=== PATIENT | female | born 1985 ===

== ENCOUNTER → 2020-04-16 07:36 | Outpatient (BNVA) | payer OTHER, SELFPAY | PROVIDERS: PCP Internal Medicine; Visit Provider Internal Medicine Endocrinology, Diabetes & Metabolism | DX: Z13.89 Encounter for screening for other disorder (principal) | CPT/HCPCS: 99214 ==

== ENCOUNTER 2020-07-07 11:24 | Emergency (ER) | payer OTHER, SELFPAY ==
[2020-07-07 11:39] VITALS: BP 128/88; PULSE 88; RESP 16; TEMP 36.7; O2SAT 99; BMI 33.3
--- NOTE | 2020-07-07 12:15 | ED.SOB ---
HPI - SOB/Dyspnea General Chief Complaint: Dyspnea Stated Complaint: shortness of breath Time Seen by Provider: 07/07/20 12:07 Source: patient Mode of arrival: ambulatory Limitations: no limitations History of Present Illness HPI Narrative: Patient complaining of subjective shortness of breath dry mouth for 1 day saturating 99% at room air her brother was positive for COVID yesterday and he visited her house 3 days ago no fever no cough no chest pain no abdominal pain patient requesting COVID-19 test Related Data Previous Rx's Medication Instructions Recorded cholecalciferol (vitamin D3) 25 25 mcg PO DAILY 90 Days #90 cap 04/16/20 mcg (1,000 unit) capsule levothyroxine 75 mcg tablet 75 mcg PO DAILY 90 Days #90 tab 04/16/20 Allergies Allergy/AdvReac Type Severity Reaction Status Date / Time No Known Allergies Allergy Verified 07/07/20 11:41 Review of Systems Review of Systems: Yes all other systems are reviewed and are negative PMFSH Past Medical History Medical History Goiter Terence's disease Hypothyroidism Obesity (BMI 30-39.9) Vitamin D deficiency Family History Family History Father Diabetes Paternal Grandmother Diabetes Social History Social History Smoking Status: Never smoker Advance Directives: No Advance Directives Information Provided: No Physical Exam Vital Signs: Vital Signs: Last Vital Signs Temp 98.1 F 07/07/20 11:39 Pulse 88 07/07/20 11:39 Resp 16 07/07/20 11:39 BP 128/88 07/07/20 11:39 Pulse Ox 99 07/07/20 11:39 Body Mass Index 33.3 Appearance: Alert. Oriented X3. No acute distress. Eyes: Pupils equal, round and reactive to light. ENT: Pharynx normal. Neck: Normal inspection. Neck supple. CVS: Normal heart rate and rhythm. Pulses normal. Respiratory: No respiratory distress. Breath sounds normal. Abdomen: Soft and nontender. Bowel sounds are present, no mass palpable, no CVA tenderness Skin: Skin warm and dry. Normal skin color. Normal skin turgor. Extremities: No lower extremity edema. Neuro: Oriented X 3. No motor deficit. No sensory deficit. MDM - SOB/Dyspnea Lab Data Attestation: I reviewed the patient's lab results. Labs: Lab Results 07/07/20 Range/Units 12:27 COVID-19 ([facility]) Negative (Negative) COVID-19 Clin Com See Note Discharge Plan Discharge Clinical Impression: COVID-19 ruled out Patient Disposition: Home, Self-Care Instructions: COVID-19 (Coronavirus Disease 2019) (ED) Additional Instructions: Your rapid test for COVID is negative although still possible that he may have COVID infection. Keep social distancing. Report to the ER/PCP if cough/shortness of breath continues for recheck of COVID Prescriptions: No Action levothyroxine 75 mcg tablet 75 mcg PO DAILY 90 Days Qty: 90 RF: 1 cholecalciferol (vitamin D3) 25 mcg (1,000 unit) capsule 25 mcg PO DAILY 90 Days Qty: 90 RF: 1
[2020-07-07 13:13] LABS: COVID-19 Test Negative (Negative); IDNOW Serial# 9DD0AD1C
== END 2020-07-07 14:34 | disposition home or self-care (01) ==
PROVIDERS: Emergency Provider Internal Medicine; PCP Internal Medicine
DX: Z20.828 Contact with and (suspected) exposure to other viral communicable diseases (principal)
CPT/HCPCS: 36415; 87635; 99283

== ENCOUNTER 2020-07-26 11:20 | Outpatient (REF) | payer OTHER, SELFPAY | END 2020-07-26 11:21 | disposition home or self-care (01) | LOC: HO.LAB 11:20 | PROVIDERS: PCP Internal Medicine; Visit Provider Internal Medicine | DX: Z20.822 Contact with and (suspected) exposure to COVID-19 (principal) | CPT/HCPCS: 36415; C9803; U0003 ==

== ENCOUNTER 2020-10-17 13:25 | Outpatient (REF) | payer OTHER, SELFPAY ==
[2020-10-17 16:04] LABS: Thyroid Stimulating Hormone 18.72 uIU/mL (0.32-4.0)
== END 2020-10-17 13:26 | disposition home or self-care (01) ==
LOC: HO.LAB 13:25
PROVIDERS: Visit Provider Internal Medicine Endocrinology, Diabetes & Metabolism
DX: E04.9 Nontoxic goiter, unspecified (principal); E55.9 Vitamin D deficiency, unspecified; Z11.1 Encounter for screening for respiratory tuberculosis
CPT/HCPCS: 36415; 84439; 84443

== ENCOUNTER 2020-11-09 13:34 | Outpatient (REF) | payer OTHER, SELFPAY ==
[2020-11-09 15:19] LABS: Free T4 (Free Thyroxine) 0.82 ng/dL (0.71-1.85); Thyroid Stimulating Hormone 8.02 uIU/mL (0.32-4.0)
== END 2020-11-09 13:35 | disposition home or self-care (01) ==
LOC: HO.LAB 13:34
PROVIDERS: PCP Internal Medicine; Visit Provider Internal Medicine Endocrinology, Diabetes & Metabolism
DX: E03.8 Other specified hypothyroidism (principal); E06.3 Autoimmune thyroiditis; E04.9 Nontoxic goiter, unspecified; E66.9 Obesity, unspecified; Z68.34 Body mass index [BMI] 34.0-34.9, adult; E55.9 Vitamin D deficiency, unspecified; Z79.899 Other long term (current) drug therapy
CPT/HCPCS: 36415; 84439; 84443; 99212

== ENCOUNTER 2021-02-13 14:39 | Outpatient (REF) | payer OTHER, SELFPAY ==
[2021-02-15 16:22] LABS: HPV mRNA E6/E7 rflx Not Detected (Not Detected)
== END 2021-02-13 14:40 | disposition home or self-care (01) ==
LOC: HO.LAB 14:39
PROVIDERS: Visit Provider Advanced Practice Midwife
DX: Z01.419 Encounter for gynecological examination (general) (routine) without abnormal findings (principal); Z11.51 Encounter for screening for human papillomavirus (HPV)
CPT/HCPCS: 87624; 88142

== ENCOUNTER 2021-09-03 14:26 | Outpatient (REF) | payer OTHER, SELFPAY ==
[2021-09-03 14:39] LABS: MANUAL DIFF FLAG NO
[2021-09-03 14:48] LABS: Basophils Percent Auto 0.4 % (0-2); Eosinophils Absolute Auto 0.1 X10*3/uL (0.0-0.4); Eosinophils Percent Auto 1.1 % (0-4); Hematocrit 36.8 % (37.0-47.0); Hemoglobin 12.4 g/dl (12.0-16.0); Imm Gran Abs Auto 0.02 X10*3/uL (0.00-0.03); Imm Gran Pct Auto 0.3 % (0.0-0.4); Lymphocytes Absolute Auto 2.1 X10*3/uL (1.2-4.9); Lymphocytes Percent Auto 28.9 % (20-40); Mean Corpuscular HGB Conc 33.7 g/dl (31.0-35.0); Mean Corpuscular Hemoglobin 29.5 pg (27.0-33.0); Mean Corpuscular Volume 87.6 fL (80.0-98.0); Monocytes Absolute Auto 0.4 X10*3/uL (0.1-1.2); Monocytes Percent Auto 4.9 % (2-11); Neutrophils Absolute Auto 4.6 x10*3/uL (2.0-8.3); Neutrophils Percent Auto 64.4 % (45-73); Platelet Count 211 X10*3/uL (160-400); Red Cell Distribution Width 12.3 % (11.0-16.0); White Blood Count 7.2 X10*3/uL (4.8-10.8)
[2021-09-03 15:47] LABS: Folate 11.7 ng/mL (> or = 4.0); Vitamin B12 732 pg/mL (200-900)
== END 2021-09-03 14:27 | disposition home or self-care (01) ==
LOC: HO.LAB 14:26
PROVIDERS: PCP Internal Medicine; Visit Provider Internal Medicine Endocrinology, Diabetes & Metabolism
DX: K21.9 Gastro-esophageal reflux disease without esophagitis (principal)
CPT/HCPCS: 36415; 82607; 82746; 85025

== ENCOUNTER → 2021-09-06 08:44 | Outpatient (BNVA) | payer OTHER, SELFPAY | PROVIDERS: PCP Internal Medicine; Visit Provider Internal Medicine Endocrinology, Diabetes & Metabolism | DX: E03.8 Other specified hypothyroidism (principal); E06.3 Autoimmune thyroiditis | CPT/HCPCS: 99212 ==

== ENCOUNTER 2022-01-07 08:12 | Outpatient (REF) | payer OTHER, SELFPAY ==
[2022-01-07 09:56] LABS: Alanine Aminotransferase 20 U/L (0-31); Albumin Level 4.4 g/dL (3.5-5.0); Alkaline Phosphatase 106 U/L (39-117); Anion Gap 10 (12-20); Aspartate Amino Transferase 16 U/L (5-31); Bilirubin Total 0.4 mg/dL (0.0-1.0); Blood Urea Nitrogen 6 mg/dL (9-16); Calcium 9.1 mg/dL (8.4-10.2); Carbon Dioxide 25 mmol/L (22-29); Chloride 107 mmol/L (96-108); Cholesterol 191 mg/dL; Estimated Glomerular Filt Rate > 60; Glucose Random 117 mg/dL (60-115); HDL Cholesterol 44 mg/dL; LDL Cholesterol Calculated 130 mg/dl; Potassium 3.9 mmol/L (3.3-5.1); Sodium 138 mmol/L (135-145); Triglycerides 89 mg/dL
[2022-01-07 10:20] LABS: Free T4 (Free Thyroxine) 0.96 ng/dL (0.71-1.85); Thyroid Stimulating Hormone 5.05 uIU/mL (0.32-4.0); Vitamin D 25-OH Total 18.2 ng/mL (>30)
== END 2022-01-07 08:13 | disposition home or self-care (01) ==
LOC: HO.LAB 08:12
PROVIDERS: PCP Internal Medicine; Visit Provider Internal Medicine Endocrinology, Diabetes & Metabolism
DX: E03.8 Other specified hypothyroidism (principal); E06.3 Autoimmune thyroiditis; E55.9 Vitamin D deficiency, unspecified; E78.00 Pure hypercholesterolemia, unspecified
CPT/HCPCS: 36415; 80053; 80061; 82306; 84439; 84443

== ENCOUNTER → 2022-01-22 08:48 | Outpatient (BNVA) | payer OTHER, SELFPAY | PROVIDERS: PCP Internal Medicine; Visit Provider Internal Medicine Endocrinology, Diabetes & Metabolism | DX: E03.8 Other specified hypothyroidism (principal); E06.3 Autoimmune thyroiditis | CPT/HCPCS: 99212 ==

== ENCOUNTER 2022-02-18 15:50 | Outpatient (REF) | payer OTHER, SELFPAY ==
[2022-02-22 01:22] LABS: HPV mRNA E6/E7 rflx Not Detected (Not Detected)
== END 2022-02-18 15:51 | disposition home or self-care (01) ==
LOC: HO.LAB 15:50
PROVIDERS: Visit Provider Advanced Practice Midwife
DX: Z01.419 Encounter for gynecological examination (general) (routine) without abnormal findings (principal); Z11.51 Encounter for screening for human papillomavirus (HPV)
CPT/HCPCS: 87624; 88142

== ENCOUNTER 2022-03-10 09:24 | Outpatient (REF) | payer OTHER, SELFPAY ==
[2022-03-10 10:36] LABS: Free T4 (Free Thyroxine) 1.22 ng/dL (0.71-1.85); Thyroid Stimulating Hormone 1.15 uIU/mL (0.32-4.0)
== END 2022-03-10 09:25 | disposition home or self-care (01) ==
LOC: HO.LAB 09:24
PROVIDERS: Absent Provider Internal Medicine; PCP Internal Medicine; Visit Provider Internal Medicine Endocrinology, Diabetes & Metabolism
DX: E03.8 Other specified hypothyroidism (principal); E06.3 Autoimmune thyroiditis
CPT/HCPCS: 36415; 84439; 84443

== ENCOUNTER 2022-05-21 07:59 | Outpatient (REF) | payer OTHER, SELFPAY ==
[2022-05-21 08:10] LABS: MANUAL DIFF FLAG NO
[2022-05-21 08:16] LABS: Basophils Percent Auto 0.4 % (0-2); Eosinophils Absolute Auto 0.1 X10*3/uL (0.0-0.4); Eosinophils Percent Auto 0.7 % (0-4); Hematocrit 37.4 % (37.0-47.0); Hemoglobin 12.7 g/dl (12.0-16.0); Imm Gran Abs Auto 0.03 X10*3/uL (0.00-0.03); Imm Gran Pct Auto 0.4 % (0.0-0.4); Lymphocytes Absolute Auto 1.6 X10*3/uL (1.2-4.9); Lymphocytes Percent Auto 22.6 % (20-40); Mean Corpuscular Hemoglobin 28.8 pg (27.0-33.0); Mean Corpuscular Volume 84.8 fL (80.0-98.0); Mean Platelet Volume 10.1 fL (9.4-12.3); Monocytes Absolute Auto 0.4 X10*3/uL (0.1-1.2); Monocytes Percent Auto 5.3 % (2-11); Neutrophils Absolute Auto 5.1 x10*3/uL (2.0-8.3); Neutrophils Percent Auto 70.6 % (45-73); Platelet Count 240 X10*3/uL (160-400); Red Blood Count 4.41 X10*6/uL (4.20-5.50); Red Cell Distribution Width 12.3 % (11.0-16.0); White Blood Count 7.2 X10*3/uL (4.8-10.8)
[2022-05-21 08:37] LABS: Estimated Average Glucose 100 mg/dL; Hemoglobin A1c % 5.1 %
[2022-05-21 08:56] LABS: Alanine Aminotransferase 16 U/L (0-31); Albumin Level 4.3 g/dL (3.5-5.0); Alkaline Phosphatase 119 U/L (39-117); Anion Gap 13 (12-20); Aspartate Amino Transferase 14 U/L (5-31); Bilirubin Total 0.4 mg/dL (0.0-1.0); Blood Urea Nitrogen 8 mg/dL (9-16); Calcium 9.3 mg/dL (8.4-10.2); Carbon Dioxide 25 mmol/L (22-29); Chloride 105 mmol/L (96-108); Estimated Glomerular Filt Rate > 60; Glucose Random 114 mg/dL (60-115); Potassium 4.1 mmol/L (3.3-5.1); Sodium 139 mmol/L (135-145); Thyroid Stimulating Hormone 6.06 uIU/mL (0.32-4.0); Vitamin D 25-OH Total 25.2 ng/mL (>30)
[2022-05-21 08:57] LABS: Free T4 (Free Thyroxine) 1.24 ng/dL (0.71-1.85)
== END 2022-05-21 08:00 | disposition home or self-care (01) ==
LOC: HO.LAB 07:59
PROVIDERS: PCP Internal Medicine; Visit Provider Internal Medicine Endocrinology, Diabetes & Metabolism
DX: E55.9 Vitamin D deficiency, unspecified (principal); R73.01 Impaired fasting glucose; E06.3 Autoimmune thyroiditis; E03.8 Other specified hypothyroidism
CPT/HCPCS: 36415; 80053; 82306; 83036; 84439; 84443; 85025; 99212

== ENCOUNTER 2022-07-31 14:45 | Outpatient (REF) | payer OTHER, SELFPAY ==
--- NOTE | ~2022-07-31 | US_ITS ---
EXAMINATION: US THYROID CLINICAL INFORMATION: Nontoxic multinodular goiter. COMPARISON: Ultrasound thyroid 02/01/2020 and 09/15/2018. TECHNIQUE: Linear transducer grayscale and color Doppler examination with attention to the region of the thyroid. FINDINGS: SIZE: Measurements of the thyroid lobes and nodules are given in sagittal, anteroposterior and transverse dimensions respectively. Right Thyroid Lobe: 6.0 x 1.5 x 1.6 cm, volume 7.5 mL. Previously 6.3 x 1.8 x 2.2 cm, volume 11.9 mL. Parenchyma: The gland echotexture is heterogeneous. Thyroid vascularity is increased. Left Thyroid Lobe: 5.6 x 1.4 x 1.7 cm, volume 7.0 mL. Previously 5.2 x 1.3 x 2.1 cm, volume 7.4 mL. Parenchyma: The gland echotexture is heterogeneous. Thyroid vascularity is increased. Isthmus: 0.8 cm in maximum AP dimension. Previously 0.7 cm. Estimated total number of nodules greater than or equal to 1 cm: 1. Regulatory Services Consultant nodules are described as follows: 1. Location: Left inferior. Size: 1.2 x 0.7 x 1.1 cm, volume 0.5 mL. Previously: 0.9 x 0.7 x 0.9 cm, volume 0.3 mL. Nodule characteristics: Composition: Solid/almost completely solid (2). Echogenicity: Isoechoic (1). Shape: Not taller than wide (0). Margins: Smooth (0). Echogenic Foci: None (0). ACR TI-RADS total points: 3 ACR TI-RADS category: 3 Significant change in size (>/= 20% in 2 dimensions and minimal increase of 2 mm or 50% or greater increase in volume): Slightly improved. Change in features: None Change in ACR TI-RADS risk category: Not applicable. NODES: No lymphadenopathy is seen in the tissue surrounding the thyroid gland. US/US thyroid IMPRESSION: Slightly heterogeneous thyroid gland with solitary nonsuspicious nodule. Previously seen right lobe upper pole nodule is not seen at this time. There is diffuse heterogeneous thyroid gland and likely pseudo nodule. ACR TI-RADS RECOMMENDATION REFERENCE: Ultrasound-guided fine-needle aspiration, followup ultrasound, no further follow up. * TR1 (0 point) and TR2 (2 points): No FNA or follow up. * TR3 (3 points): FNA if more than or equal to 2.5 cm in maximum dimension, followup ultrasound in 1, 3 and 5 years if 1.5 to 2.4 cm in maximum dimension. * TR4 (4-6 points): FNA if more than or equal to 1.5 cm in maximum dimension, followup ultrasound in 1, 2, 3 and 5 years if 1 to 1.4 cm in maximum dimension. * TR5 (more than or equal to 7 points): FNA if more than or equal to 1 cm in maximum dimension, followup ultrasound every year for 5 years if 0.5 to 0.9 cm in maximum dimension. * TR3, TR4 or TR5 nodules that are below the size threshold for followup receive no follow up.
== END 2022-07-31 14:46 | disposition home or self-care (01) ==
LOC: HO.US 14:45
PROVIDERS: Visit Provider Internal Medicine Endocrinology, Diabetes & Metabolism
DX: E04.2 Nontoxic multinodular goiter (principal)
CPT/HCPCS: 76536

== ENCOUNTER 2022-11-12 08:28 | Outpatient (REF) | payer OTHER, SELFPAY ==
[2022-11-12 10:36] LABS: Alanine Aminotransferase 20 U/L (0-31); Albumin Level 4.4 g/dL (3.5-5.0); Alkaline Phosphatase 114 U/L (39-117); Aspartate Amino Transferase 18 U/L (5-31); Bilirubin Total 0.6 mg/dL (0.0-1.0); Blood Urea Nitrogen 10 mg/dL (9-16); Carbon Dioxide 27 mmol/L (22-29); Cholesterol 201 mg/dL; Estimated Glomerular Filt Rate > 60; Glucose Random 98 mg/dL (60-115); HDL Cholesterol 39 mg/dL; LDL Cholesterol Calculated 146 mg/dl; Triglycerides 80 mg/dL
[2022-11-12 10:50] LABS: Free T4 (Free Thyroxine) 1.06 ng/dL (0.71-1.85); Thyroid Stimulating Hormone 2.78 uIU/mL (0.32-4.0)
[2022-11-12 11:08] LABS: Calcium 9.7 mg/dL (8.4-10.2); Chloride 108 mmol/L (96-108); Potassium 4.4 mmol/L (3.3-5.1); Sodium 141 mmol/L (135-145)
[2022-11-12 11:09] LABS: Anion Gap 11 (12-20)
== END 2022-11-12 08:29 | disposition home or self-care (01) ==
LOC: HO.LAB 08:28
PROVIDERS: Absent Provider Internal Medicine Endocrinology, Diabetes & Metabolism; PCP Internal Medicine; Visit Provider Internal Medicine
DX: E03.8 Other specified hypothyroidism (principal); E06.3 Autoimmune thyroiditis; E78.00 Pure hypercholesterolemia, unspecified
CPT/HCPCS: 36415; 80053; 80061; 84439; 84443

== ENCOUNTER → 2022-11-19 08:56 | Outpatient (BNVA) | payer OTHER, SELFPAY | PROVIDERS: PCP Internal Medicine; Visit Provider Internal Medicine Endocrinology, Diabetes & Metabolism | DX: E03.8 Other specified hypothyroidism (principal); E06.3 Autoimmune thyroiditis | CPT/HCPCS: 99212 ==

== ENCOUNTER 2023-02-06 12:55 | Outpatient (AMB) | payer OTHER, SELFPAY ==
[2023-02-06 12:58] VITALS: BP 124/86; PULSE 75; O2SAT 99; BMI 36.0
--- NOTE | 2023-02-06 12:58 | MHC.PC.OV ---
Vital Signs 02/06/23 12:58 Height 5 ft 5 in Weight 216 lb 8 oz BMI 36.0 BP 124/86 Blood Pressure Location Lt brachial Position Sitting Pulse 75 Pulse Source Pulse Oximeter Temp Source Skin Pulse Oximetry (%) 99 Oxygen Delivery Method Room Air Intake Visit Reasons: PE Intake Note: Patient is here today for a physical. 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 Allergies No Known Allergies Allergy (Verified 02/06/23 13:02) Medication List - Last Reconciled 02/06/23 by Omid An MD cholecalciferol (vitamin D3) 50 mcg (2 x 25 mcg (1,000 unit)) PO ONCE 90 days levonorgestrel (Mirena) intrauterine levothyroxine 112 mcg PO DAILY sennosides-docusate sodium 8.6-50 mg (Senna-S) 4 tab-caps (4 x 8.6-50 mg) PO BEDTIME 90 days Tobacco use date assessed: 02/06/23 Dental Screening Dental Screen Date: 02/06/23 Did you have a dental visit in the last 12 months?: Yes Did you have a dental problem in the last 6 months where you did not have access to dental care?: No Was dental information given to patient?: Patient has dentist HPI PE HPI Details 38-year-old obese female with impaired glucose tolerance GERD hypothyroidism hypercholesterolemia last seen in July 2022 patient is here for physical exam. Patient is up-to-date with Pap smear. Review of the notes in October is being followed up by a Dr. Anthony endocrinology on 112 mcg of levothyroxine. Patient has diagnosis of Terence's 2013. Patient had a recent ultrasound of the thyroid showing a left lower the Michael thyroid nodule and has been advised biopsy. 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 Hypothyroidism Impaired glucose tolerance Obesity (BMI 30-39.9) Ovarian cyst Skin tags, multiple acquired Vitamin D deficiency Vitamin D deficiency Surgical History H/O LEEP Family History Father Diabetes Paternal Grandmother Diabetes Social History Household Members: Other Household Members Other:: Housing: Apartment Alcohol intake: never Patient Tobacco Use Status: Never used Tobacco e-Cigarette/Vaping Use: Never Used Second Hand Smoke Exposure: No service: No Current occupational status: employed Cognitive needs: No Hearing needs: No Vision needs: Yes Female Reproductive History Menstrual Age of Menarche: 13 Questionnaire PHQ-9 Over the last 2 weeks, how often have you been bothered by any of the following problems? 1. Little interest or pleasure in doing things: not at all 2. Feeling down, depressed, or hopeless: not at all 3. Trouble falling or staying asleep, or sleeping too much: not at all 4. Feeling tired or having little energy: not at all 5. Poor appetite or overeating: not at all 6. Feeling bad about yourself - or that you are a failure or have let yourself or your family down: not at all 7. Trouble concentrating on things, such as reading the newspaper or watching television: not at all 8. Moving or speaking so slowly that other people could have noticed. Or the opposite - being so fidgety or restless that you have been moving around a lot more than usual: not at all 9. Thoughts that you would be better off or of hurting yourself in some way: not at all Total score: 0 Depression Screening Interpretation: Negative Source: Developed by Drs. Vladislav Gutierrez, Leilani Foote, Herminio Arriaza and colleagues, with an educational ynes from [employer]. Thrive Questionnaire Date Thrive assessed: 08/06/22 AUDIT C Alcohol Use Questionnaire (AUDIT-C) 1. How often do you have a drink containing alcohol?: Never 3. How often do you have six or more drinks on one occasion?: Never Total Score: 0 NORRIS-7 AMB Questionnaire NORRIS-7 Date NORRIS - 7 assessed: 02/06/23 Feeling nervous, anxious, or on edge: 0 = Not at all Not being able to stop or control worryin = Not at all Worrying too much about different things: 0 = Not at all Trouble relaxin = Not at all Being so restless that it is hard to sit still: 0 = Not at all Becoming easily annoyed or irritable: 0 = Not at all Feeling afraid as if something awful might happen: 0 = Not at all Total NORRIS-7 score (0-4 normal; 5-9 mild; 10-14 moderate; 15-21 severe): 0 Source: Developed by Drs. Vladislav Gutierrez, Leilani Foote, Herminio Arriaza and colleagues, with an educational ynes from [employer]. Review of Systems Const Denies poor appetite and Denies weakness Eyes Denies no additional complaints ENT Reports Normal hearing present, Denies dizziness, Denies nasal congestion, Denies tinnitus and Denies sore throat Card Denies chest pain, Denies syncope, Denies rapid heart rate and Denies dyspnea Resp Denies cough and Denies dyspnea GI Denies change in stool character, Reports constipation, Denies diarrhea, Denies nausea and Denies vomiting Denies urinary frequency, Denies difficulty voiding and Denies dysuria Neuro Reports Normal hearing present, Denies confusion, Denies dizziness, Denies syncope and Denies weakness Psych Denies confusion Physical exam (Primary Care) Vital Signs: Last Vital Signs Pulse 75 02/06/23 12:58 BP 124/86 02/06/23 12:58 Pulse Ox 99 02/06/23 12:58 Oxygen Delivery Method Room Air 02/06/23 12:58 BMI result Body Mass Index 36.0 Tobacco/Smoking Status: Tobacco use Status Tobacco use date assessed 02/06/23 02/06/23 12:59 Patient Tobacco Use Status Never used Tobacco 02/06/23 12:59 e-Cigarette/Vaping Use Never Used 02/06/23 12:59 PHQ-9: PHQ-9 Score PHQ-9: Total score 0 02/06/23 13:04 Depression Screening Interpretation: Negative Thrive Assessment: Date of Thrive Assessment Date Thrive assessed 08/06/22 02/06/23 12:59 Const General: No confusion Orientation/consciousness: No confusion HENMT Head: Yes normocephalic Ears: external ears normal and TM's normal bilaterally Face and sinus: Yes normal facial exam Mouth: moist mucous membranes Throat: Yes tonsils normal Eyes Conjunctivae: conjunctivae normal Pupils: Equal, round and reactive pupils present and Pupil accommodation reflex normal Direct Ophthalmoscopy: normal light reflex Neck Neck: No lymphadenopathy Thyroid: Thyroid normal Chest Chest palpation & inspection: normal inspection of the chest Resp Effort & Inspection: normal respiratory effort and no audible wheezes Auscultation: clear to auscultation bilaterally, no crackles, no wheezes and lung sounds not diminished Cardio Rate: regular rate Rhythm: regular rhythm Peripheral pulses: radial pulses present and dorsalis pedis present GI Palpation (GI): no masses Auscultation: normal bowel sounds and normoactive bowel sounds Rectal Exam - Female: deferred Skin General skin exam: no rashes or lesions noted Rashes: no rashes Neuro General: No confusion Cranial nerves: Yes Equal, round and reactive pupils present and Yes Normal hearing present Cognition (Neuro): normal cognition Gait exam (Neuro): Normal gait present Motor exam (neuro): 5/5 motor strength present throughout Deep tendon reflexes (DTR's): Right brachioradialis reflex intensity grade: 2+, Left brachioradialis reflex intensity grade: 2+, Right patellar reflex intensity grade: 2+ and Left patellar reflex intensity grade: 2+ Extrem General: No edema Assessment and Plan Assessment & Plan (1) Annual physical exam: Code(s): Z00.00 - Encounter for general adult medical examination without abnormal findings (2) Impaired fasting glucose: Code(s): R73.01 - Impaired fasting glucose Plan: Decrease the amount of carbohydrate intake, pasta, bread, rice and potatoes are all sugar and that is aside from all the sweet stuff, remember that fruits are good but they are Sweet also. (3) GERD (gastroesophageal reflux disease): Code(s): K21.9 - Gastro-esophageal reflux disease without esophagitis Plan: Avoid the foods that causes that usually spicy foods, tomato products, juices, coffee, soda and foods that your sensitive to. After eating do not lie down, allow 3-4 hours before in lie down. And keep the head of bed above 30 degrees to avoid the acid from going up. (4) Obesity (BMI 30-39.9): Code(s): E66.9 - Obesity, unspecified Plan: Diet and exercise (5) Hypothyroidism: Comment: Julylightly heterogeneous thyroid gland with solitary nonsuspicious nodule. 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 Previously seen right lobe upper pole nodule is not seen at this time. There is diffuse heterogeneous thyroid gland and likely pseudo nodule. 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
== END 2023-02-06 13:39 | disposition home or self-care (01) ==
PROVIDERS: PCP Internal Medicine; Visit Provider Internal Medicine
DX: Z00.00 Encounter for general adult medical examination without abnormal findings (principal); K21.9 Gastro-esophageal reflux disease without esophagitis; E06.3 Autoimmune thyroiditis; E03.8 Other specified hypothyroidism; E04.1 Nontoxic single thyroid nodule; R73.01 Impaired fasting glucose; E66.9 Obesity, unspecified; Z68.36 Body mass index [BMI] 36.0-36.9, adult
CPT/HCPCS: 99395

== ENCOUNTER 2023-02-20 08:04 | Outpatient (AMB) | payer OTHER, SELFPAY ==
[2023-02-20 08:06] VITALS: BP 122/76; BMI 35.3
--- NOTE | 2023-02-20 08:06 | A.OFFVIS_ITS ---
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 Doing well with no obgyn hospitalist physician concerns. She tries to eat healthy, could be better. Not currently sexually active. Uses IUD for BC and cycle control. Denies vaginal itching and irritation. STD screening offered; she declines. Denies family hx of breast, colon and ovarian cancer. Last pap smear 2021, neg, neg. Hx of LEEP in 2011 [facility] Medical History Anemia ASAD II (cervical intraepithelial neoplasia II) GERD (gastroesophageal reflux disease) Goiter Terence's disease Hypothyroidism Impaired glucose tolerance Obesity (BMI 30-39.9) Ovarian cyst Skin tags, multiple acquired Vitamin D deficiency Surgical History H/O LEEP Family History Father Diabetes Hypertension Paternal Grandmother Diabetes Social History Household Members: Children Household Members Other:: Housing: House Alcohol intake: never Patient Tobacco Use Status: Former Tobacco user Years Smoked: 8 years e-Cigarette/Vaping Use: Never Used Second Hand Smoke Exposure: No service: No Current occupational status: employed 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 Sexual orientation: Straight/Heterosexual Gender identity: Female Cognitive needs: No Hearing needs: No Vision needs: Yes Female Reproductive History Menstrual Age of Menarche: 13 control method: progestin IUCD Total pregnancies: 5 Full term: 4 Number of Living Children: 5 Ab induced: 1 Multiple births: 1 Date of last pap smear: 02/20/22 Review of Systems Const All systems reviewed & are unremarkable except as noted in HPI and below Physical Exam Vital Signs: Last Vital Signs BP 122/76 02/20/23 08:06 BMI result Body Mass Index 35.3 Const General: cooperative, healthy appearing, no acute distress, well developed and alert Orientation/consciousness: patient oriented x3 HEENT Head: Yes normal to inspection Eyes General: appearance normal, both eyes and all related structures Neck Neck: Yes normal visual inspection Thyroid: Thyroid normal Chest Chest palpation & inspection: normal inspection of the chest Breast/axilla inspection: normal inspection of the breasts (no puckering, dimpling, peau de orange, retraction, discharge, masses) Breast/axilla palpation: normal palpation of the breasts Resp Effort & Inspection: normal respiratory effort GI Inspection: Yes normal to inspection Palpation (GI): Soft to palpation Rectal Exam - Female: deferred General: Yes bladder normal to palpation External Female Exam: normal external appearance and normal appearance of the urethra Speculum Exam - Vagina: normal appearance of the vagina, normal palpation and normal vaginal discharge Speculum Exam - Cervix: normal appearance of the cervix, normal palpation and Other cervical findings present (IUD strings present) Bimanual exam- vagina & uterus: normal bimanual exam, normal palpation, uterine size normal, bladder normal to palpation and normal palpation Bimanual Exam- Adnexa, other: normal adnexae and no masses Skin General skin exam: no rashes or lesions noted Neuro General: patient oriented x3 Cognition (Neuro): normal cognition Extrem General: Yes normal to inspection Psych Attitude: cooperative Thought process: Normal thought process present Assessment & Plan Assessment & Plan (1) Encounter for annual routine gynecological examination: Code(s): Z01.419 - Encounter for gynecological examination (general) (routine) without abnormal findings Plan: Discussed: Current recommendations for pap smears per ASCCP guidelines. Breast awareness and periodic self breast exams. Maintaining a healthy lifestyle including a well balanced diet and routine exercise. Encouraged condom use for STD prevention. All of her questions and concerns were addressed to the best of my ability. RTO in one year for AG. Coding Level of Care Code Est Pt Prev Care 18-39y(64327) Diagnoses Encounter for annual routine gynecological examination Z01.419
== END 2023-02-20 08:35 | disposition home or self-care (01) ==
LOC: HO.HWS 08:04
PROVIDERS: PCP Internal Medicine; Visit Provider Advanced Practice Midwife
DX: Z01.419 Encounter for gynecological examination (general) (routine) without abnormal findings (principal)
CPT/HCPCS: 99395

== ENCOUNTER → 2023-02-20 08:04 | Outpatient (BNVA) | payer OTHER, SELFPAY | PROVIDERS: PCP Internal Medicine; Visit Provider Advanced Practice Midwife ==

== ENCOUNTER 2023-03-12 08:50 | Outpatient (REF) | payer OTHER, SELFPAY ==
[2023-03-12] MEDS: Lidocaine HCl 1 % MPF 5 ML VIAL SUBCUT (14:04)
== END 2023-03-12 08:51 | disposition home or self-care (01) ==
LOC: HO.US 08:50
PROVIDERS: PCP Internal Medicine; Visit Provider Internal Medicine Endocrinology, Diabetes & Metabolism
DX: E04.9 Nontoxic goiter, unspecified (principal)
CPT/HCPCS: 10005; 88173

== ENCOUNTER 2023-03-25 08:54 | Outpatient (AMB) | payer OTHER, SELFPAY ==
--- NOTE | 2023-03-25 09:04 | MHC.OFFVIS ---
Intake Vital Signs 03/25/23 09:05 Height 5 ft 5 in Weight 220 lb 0.341 oz BMI 36.6 BP 130/92 H Blood Pressure Location Lt brachial Position Sitting Pulse 82 Pulse Source Pulse Oximeter Intake Visit Reasons: FNA results/hypothyroidism/thyroid nodule Intake Note: Patient present today for FNA results, hypothyroidism/thyroid nodule follow up visit. Propagation Manager Required: No Accompanied by: Self / Same As Patient Allergies No Known Allergies Allergy (Verified 03/25/23 09:09) Medication List - Last Reconciled 03/25/23 by Vladislav Anthony MD cholecalciferol (vitamin D3) 50 mcg (2 x 25 mcg (1,000 unit)) PO ONCE 90 days levonorgestrel (Mirena) intrauterine levothyroxine TAKE 1 TABLET BY MOUTH EVERY DAY sennosides-docusate sodium 8.6-50 mg (Senna-S) 4 tab-caps (4 x 8.6-50 mg) PO BEDTIME 90 days HPI HPI Comments History of Present Illness Details 38 yo female, today for fup visit, hypothyroidism. Sheis taking 112 mcg levothyroxine She was diagnosed with Terence's disease 2012. trended TSH 2005 to 2016 from 1.69 to 46.64 MIU/ML 07/12/12 TSH 46.64 MIU/ML T4 3.9 mcg/ml TPO > 1000. 02/03/17 TSH 3.68 MIU/ML FT4 0.89 ng/ DL. . He denies insomnia, fatigue, denies dry skin, dysphagia, dyspnea, dysphonia, tremors, palpitations, irritability, anxiety. Family History: negative for thyroid disease. 02/01/2020 ultrasound thyroid. Right Thyroid Lobe: 6.3 x 1.8 x 2.0 cm, volume 11.9 mL. Parenchyma: The gland echotexture is heterogeneous. Thyroid vascularity is increased. Left Thyroid Lobe: 5.2 x 1.3 x 2.1 cm, volume 7.4 mL. Parenchyma: The gland echotexture is heterogeneous. Thyroid vascularity is increased. Isthmus: 0.7 cm in maximum AP dimension. RIGHT THYROID LOBE: Within the mid gland there is a 2 mm calcification which is smoothly marginated without internal vascular flow. Within the upper pole there is a 5 x 4 x 3 mm heterogeneous and hypoechoic smoothly marginated lesion without calcification. There is some intranodular blood flow seen. ISTHMUS: No nodules. LEFT THYROID LOBE: Within the lower pole there is a 1.1 x 0.7 x 0.9 cm heterogeneous and isoechoic nodule with somewhat irregular margins. No calcification is evident. There is intranodular blood flow seen. NODES: No lymphadenopathy is seen in the tissue surrounding the thyroid gland. Laboratory Tests 10/17/20 13:40 TSH 18.72 H Free T4 0.70 L Laboratory Tests 07/23/19 07/23/19 08:48 08:48 25-OH Vitamin D To terry 22.6 Free T4 (Dialysis) 0.8 L TSH 3rd Generation 3.40 Recent thyroid ultrasound shows left lower pole nodule has slightly increased in size to over cm . She is status post FNA of this nodule with benign cytology [facility] Medical History Anemia ASAD II (cervical intraepithelial neoplasia II) GERD (gastroesophageal reflux disease) Goiter Terence's disease Hypothyroidism Impaired glucose tolerance Obesity (BMI 30-39.9) Ovarian cyst Skin tags, multiple acquired Vitamin D deficiency Surgical History H/O LEEP Family History Father Diabetes Hypertension Paternal Grandmother Diabetes Social History Household Members: Children Household Members Other:: Housing: House Alcohol intake: never Patient Tobacco Use Status: Former Tobacco user Years Smoked: 8 years e-Cigarette/Vaping Use: Never Used Second Hand Smoke Exposure: No service: No Current occupational status: 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 There are no discrete nodules palpated Assessment & Plan Assessment & Plan (1) Hypothyroidism: Comment: Julylightly heterogeneous thyroid gland with solitary nonsuspicious nodule. 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
[2023-03-25 09:05] VITALS: BP 130/92; PULSE 82; BMI 36.6
== END 2023-03-25 09:28 | disposition home or self-care (01) ==
PROVIDERS: PCP Internal Medicine; Visit Provider Internal Medicine Endocrinology, Diabetes & Metabolism
DX: E03.8 Other specified hypothyroidism (principal); E06.3 Autoimmune thyroiditis
CPT/HCPCS: 99213

== ENCOUNTER → 2023-03-25 08:54 | Outpatient (BNVA) | payer OTHER, SELFPAY | PROVIDERS: Visit Provider Internal Medicine Endocrinology, Diabetes & Metabolism | DX: E03.8 Other specified hypothyroidism (principal); E06.3 Autoimmune thyroiditis | CPT/HCPCS: 99212 ==

== ENCOUNTER 2024-02-11 12:18 | Outpatient (AMB) | payer OTHER, SELFPAY ==
--- NOTE | 2024-02-11 12:39 | MHC.PC.OV ---
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 Accompanied by: Self / Same As Patient Allergies No Known Allergies Allergy (Verified 02/11/24 12:41) Medication List - Last Reconciled 02/11/24 by Omid An MD cholecalciferol (vitamin D3) 50 mcg (2 x 25 mcg (1,000 unit)) PO ONCE 90 days levonorgestrel (Mirena) intrauterine levothyroxine 112 mcg PO DAILY sennosides-docusate sodium 8.6-50 mg (Senna-S) 4 tab-caps (4 x 8.6-50 mg) PO BEDTIME 90 days Tobacco use date assessed: 02/11/24 Dental Screening Dental Screen Date: 02/11/24 Did you have a dental visit in the last 12 months?: Yes Did you have a dental problem in the last 6 months where you did not have access to dental care?: No Was dental information given to patient?: Patient has dentist HPI pe HPI Details 39-year-old obese female with impaired glucose tolerance hypothyroidism(Terence's thyroiditis) last seen in January 2023 for physical exam. Patient had a left thyroid nodule being followed up by Endocrinology. Review of the notes was seen in February 2023 benign cytology. Noted 28 lb weight loss [facility] Medical History Anemia ASAD II (cervical intraepithelial neoplasia II) GERD (gastroesophageal reflux disease) Goiter Terence's disease Hypothyroidism Impaired glucose tolerance Obesity (BMI 30-39.9) Ovarian cyst Skin tags, multiple acquired Vitamin D deficiency Surgical History H/O LEEP Family History Father Diabetes Hypertension Paternal Grandmother Diabetes Social History Household Members: Children Household Members Other:: Housing: House Alcohol intake: never Patient Tobacco Use Status: Former Tobacco user Tobacco use type: Cigarette Years Smoked: 8 years e-Cigarette/Vaping Use: Never Used Second Hand Smoke Exposure: No service: No Current occupational status: employed 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 1. Little interest or pleasure in doing things: not at all 2. Feeling down, depressed, or hopeless: not at all 3. Trouble falling or staying asleep, or sleeping too much: not at all 4. Feeling tired or having little energy: not at all 5. Poor appetite or overeating: not at all 6. Feeling bad about yourself - or that you are a failure or have let yourself or your family down: not at all 7. Trouble concentrating on things, such as reading the newspaper or watching television: not at all 8. Moving or speaking so slowly that other people could have noticed. Or the opposite - being so fidgety or restless that you have been moving around a lot more than usual: not at all 9. Thoughts that you would be better off or of hurting yourself in some way: not at all Total score: 0 Depression Screening Interpretation: Negative Depression Screening Done: Yes Source: Developed by Drs. Vladislav Gutierrez, Leilani Foote, Herminio Arriaza and colleagues, with an educational ynes from [employer]. Thrive Questionnaire Date Thrive assessed: 02/11/24 I am a: Patient What is your living situation today?: I have a steady place to live THRIVE Score: 0 AUDIT C Alcohol Use Questionnaire (AUDIT-C) 1. How often do you have a drink containing alcohol?: Never 3. How often do you have six or more drinks on one occasion?: Never Total Score: 0 NORRIS-7 AMB Questionnaire NORRIS-7 Date NORRIS - 7 assessed: 02/11/24 Feeling nervous, anxious, or on edge: 0 = Not at all Not being able to stop or control worryin = Not at all Worrying too much about different things: 0 = Not at all Trouble relaxin = Not at all Being so restless that it is hard to sit still: 0 = Not at all Becoming easily annoyed or irritable: 0 = Not at all Feeling afraid as if something awful might happen: 0 = Not at all Total NORRIS-7 score (0-4 normal; 5-9 mild; 10-14 moderate; 15-21 severe): 0 Source: Developed by Drs. Vladislav Gutierrez, Leilani Foote, Herminio Arriaza and colleagues, with an educational ynes from [employer]. Review of Systems Const Denies poor appetite and Denies weakness Eyes Denies no additional complaints ENT Reports Normal hearing present, Denies dizziness, Denies nasal congestion, Denies tinnitus and Denies sore throat Card Denies chest pain, Denies syncope, Denies rapid heart rate and Denies dyspnea Resp Denies cough and Denies dyspnea GI Denies change in stool character, Reports constipation, Denies diarrhea, Denies nausea and Denies vomiting Denies urinary frequency, Denies difficulty voiding and Denies dysuria Neuro Reports Normal hearing present, Denies confusion, Denies dizziness, Denies syncope and Denies weakness Psych Denies confusion Physical exam (Primary Care) Tobacco/Smoking Status: Tobacco use Status Tobacco use date assessed 02/06/23 12/18/23 11:47 Patient Tobacco Use Status Former Tobacco user 12/18/23 11:47 e-Cigarette/Vaping Use Never Used 12/18/23 11:47 Depression Screening Interpretation: Negative Thrive Assessment: Date of Thrive Assessment Date Thrive assessed 08/06/22 12/18/23 11:47 Const General: No confusion Orientation/consciousness: No confusion HENMT Head: Yes normocephalic Ears: external ears normal and TM's normal bilaterally Face and sinus: Yes normal facial exam Mouth: moist mucous membranes Throat: Yes tonsils normal Eyes Conjunctivae: conjunctivae normal Pupils: Equal, round and reactive pupils present and Pupil accommodation reflex normal Direct Ophthalmoscopy: normal light reflex Neck Neck: No lymphadenopathy Thyroid: Thyroid normal Chest Chest palpation & inspection: normal inspection of the chest Resp Effort & Inspection: normal respiratory effort and no audible wheezes Auscultation: clear to auscultation bilaterally, no crackles, no wheezes and lung sounds not diminished Cardio Rate: regular rate Rhythm: regular rhythm Peripheral pulses: radial pulses present and dorsalis pedis present GI Palpation (GI): no masses Auscultation: normal bowel sounds and normoactive bowel sounds Rectal Exam - Female: deferred Skin General skin exam: no rashes or lesions noted Rashes: no rashes Neuro General: No confusion Cranial nerves: Yes Equal, round and reactive pupils present and Yes Normal hearing present Cognition (Neuro): normal cognition Gait exam (Neuro): Normal gait present Motor exam (neuro): 5/5 motor strength present throughout Deep tendon reflexes (DTR's): Right brachioradialis reflex intensity grade: 2+, Left brachioradialis reflex intensity grade: 2+, Right patellar reflex intensity grade: 2+ and Left patellar reflex intensity grade: 2+ Extrem General: No edema Assessment and Plan Assessment & Plan (1) Annual physical exam: Code(s): Z00.00 - Encounter for general adult medical examination without abnormal findings Plan: Patient is advised to eat healthy, keep well hydrated, keep active and have adequate sleep. (2) Obesity (BMI 30-39.9): Code(s): E66.9 - Obesity, unspecified Plan: Diet and exercise. noted 28 lb weight loss!!! (3) GERD (gastroesophageal reflux disease): Code(s): K21.9 - Gastro-esophageal reflux disease without esophagitis (4) Hypothyroidism: Comment: Julylightly heterogeneous thyroid gland with solitary nonsuspicious nodule. 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 Panel Today E78.00 - Pure hypercholesterolemia, unspecified Free T4 (Free Thyroxine) Today E78.00 - Pure hypercholesterolemia, unspecified Thyroid Stimulating Hormone Today E78.00 - Pure hypercholesterolemia, unspecified T Spot TB Today Z00.00 - Encounter for general adult medical examination without abnormal findings Complete Blood Count Auto Diff Today E78.00 - Pure hypercholesterolemia, unspecified Lipid Panel Today E78.00 - Pure hypercholesterolemia, unspecified Vitamin B12 and Folate Today E78.00 - Pure hypercholesterolemia, unspecified Vitamin D 25-OH Total Today E78.00 - Pure hypercholesterolemia, unspecified Hemoglobin A1c Today R73.01 - Impaired fasting glucose Referrals Dermatology Referral L65.9 - Nonscarring hair loss, unspecified Coding Level of Care Code Est Pt Prev Care 18-39y(45477) Diagnoses Annual physical exam Z00.00 Obesity (BMI 30-39.9) E66.9 GERD (gastroesophageal reflux disease) K21.9 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
[2024-02-11 12:40] VITALS: BP 118/76; PULSE 98; O2SAT 97; BMI 31.9
== END 2024-02-11 13:07 | disposition home or self-care (01) ==
PROVIDERS: PCP Internal Medicine; Visit Provider Internal Medicine
DX: Z00.00 Encounter for general adult medical examination without abnormal findings (principal); E66.9 Obesity, unspecified; K21.9 Gastro-esophageal reflux disease without esophagitis; Z68.31 Body mass index [BMI] 31.0-31.9, adult; E03.8 Other specified hypothyroidism; E06.3 Autoimmune thyroiditis; L65.9 Nonscarring hair loss, unspecified
CPT/HCPCS: 99395

== ENCOUNTER 2024-02-13 08:15 | Outpatient (REF) | payer OTHER, SELFPAY ==
[2024-02-13 08:28] LABS: MANUAL DIFF FLAG NO
[2024-02-13 09:38] LABS: Basophils Absolute Auto 0.1 X10*3/uL (0.0-0.2); Basophils Percent Auto 0.6 % (0-2); Eosinophils Absolute Auto 0.3 X10*3/uL (0.0-0.4); Eosinophils Percent Auto 2.9 % (0-4); Hematocrit 37.6 % (37.0-47.0); Imm Gran Abs Auto 0.03 X10*3/uL (0.00-0.03); Imm Gran Pct Auto 0.3 % (0.0-0.4); Lymphocytes Absolute Auto 1.8 X10*3/uL (1.2-4.9); Mean Corpuscular HGB Conc 34.6 g/dl (31.0-35.0); Mean Corpuscular Volume 86.8 fL (80.0-98.0); Mean Platelet Volume 10.5 fL (9.4-12.3); Monocytes Absolute Auto 0.5 X10*3/uL (0.1-1.2); Monocytes Percent Auto 5.1 % (2-11); Neutrophils Absolute Auto 6.5 x10*3/uL (2.0-8.3); Neutrophils Percent Auto 71.1 % (45-73); Platelet Count 232 X10*3/uL (160-400); Red Blood Count 4.33 X10*6/uL (4.20-5.50); Red Cell Distribution Width 12.9 % (11.0-16.0); White Blood Count 9.1 X10*3/uL (4.8-10.8)
[2024-02-13 09:55] LABS: Estimated Average Glucose 97 mg/dL
[2024-02-13 10:36] LABS: Alanine Aminotransferase 18 U/L (0-31); Albumin Level 4.3 g/dL (3.5-5.0); Alkaline Phosphatase 96 U/L (39-117); Anion Gap 12 (12-20); Aspartate Amino Transferase 17 U/L (5-31); Bilirubin Total 0.4 mg/dL (0.0-1.0); Blood Urea Nitrogen 7 mg/dL (9-16); Calcium 9.6 mg/dL (8.4-10.2); Carbon Dioxide 25 mmol/L (22-29); Chloride 107 mmol/L (96-108); Cholesterol 188 mg/dL (<200); Estimated Glomerular Filt Rate > 60; Glucose Random 98 mg/dL (60-115); HDL Cholesterol 48 mg/dL (>40); LDL Cholesterol Calculated 122 mg/dL (<100); Sodium 140 mmol/L (135-145); Total Protein 7.2 g/dL (6.5-8.0); Triglycerides 92 mg/dL (<150)
[2024-02-13 10:59] LABS: Free T4 (Free Thyroxine) 0.89 ng/dL (0.71-1.85); Thyroid Stimulating Hormone 4.87 uIU/mL (0.32-4.0); Vitamin D 25-OH Total 29.1 ng/mL (>30)
[2024-02-13 11:00] LABS: Folate 13.1 ng/mL (> or = 4.0); Vitamin B12 1095 pg/mL (200-900)
== END 2024-02-13 08:16 | disposition home or self-care (01) ==
LOC: HO.LAB 08:15
PROVIDERS: PCP Internal Medicine; Visit Provider Internal Medicine
DX: E78.00 Pure hypercholesterolemia, unspecified (principal); R73.01 Impaired fasting glucose
CPT/HCPCS: 36415; 80053; 80061; 82306; 82607; 82746; 83036; 84439; 84443; 85025

== ENCOUNTER 2024-02-15 15:35 | Emergency (ER) | payer OTHER, SELFPAY ==
--- NOTE | ~2024-02-15 | XR_ITS ---
EXAMINATION: XR CHEST CLINICAL INFORMATION: Cough COMPARISON: Frontal view 04/30/15 TECHNIQUE: 2 views of the chest were obtained. FINDINGS: There is no mediastinal widening. No hilar mass. No alveolar edema. No significant pleural fluid or pneumothorax. There is no dense focal pneumonia. There is equivocal slightly increased lung markings in the left retrocardiac region. There is some gaseous distention in the region of the splenic flexure XR/XR chest 2V IMPRESSION: No large dense pneumonia. A small area of pneumonia or atelectasis in the left retrocardiac region is difficult to entirely exclude. This is not a definite finding.
[2024-02-15 17:01] VITALS: BP 131/93; PULSE 99; RESP 18; TEMP 37.2; O2SAT 100; BMI 32.8
--- NOTE | 2024-02-15 17:01 | ED.URI ---
HPI - URI/Sore Throat General Chief Complaint: Upper Respiratory Symptoms Stated Complaint: Cough Sore Throat Head Pain Time Seen by Provider: 02/15/24 18:10 Source: patient Mode of arrival: ambulatory Limitations: no limitations History of Present Illness ED Provider: rosario BORREGO Narrative: Patient has been go in for last 1 week since she came from [place] no other family member sick feel have sore throat dry cough mostly in the night and in the morning no fever no chills tested COVID negative at home Related Data Home Medications ?Medication ?Instructions ?Recorded ?Confirmed levonorgestrel 21 mcg/24 hr (up to intrauterine 02/18/22 02/11/24 8 years) 52 mg intrauterine device (Mirena) Previous Rx's ?Medication ?Instructions ?Recorded cholecalciferol (vitamin D3) 25 50 mcg (2 x 25 mcg (1,000 unit)) 01/07/22 mcg (1,000 unit) capsule PO ONCE 90 days #180 caps levothyroxine 112 mcg tablet 112 mcg PO DAILY #90 tabs 08/14/23 sennosides 8.6 mg-docusate sodium 4 tab-cap (4 x 8.6-50 mg) PO 10/09/23 50 mg tablet (Senna-S) BEDTIME 90 days #360 tabs albuterol sulfate 90 mcg/actuation 2 puff inhalation Q6H PRN 02/15/24 aerosol inhaler shortness of breath or wheezing #8.5 grams benzonatate 200 mg capsule 200 mg PO TID PRN cough #30 caps 02/15/24 cefuroxime axetil 500 mg tablet 500 mg PO BID 7 days #14 tabs 02/15/24 Allergies Allergy/AdvReac Type Severity Reaction Status Date / Time No Known Allergies Allergy Verified 02/15/24 17:02 Review of Systems Review of Systems: Yes all other systems are reviewed and are negative PMFSH Past Medical History Medical History Skin tags, multiple acquired Impaired glucose tolerance GERD (gastroesophageal reflux disease) Ovarian cyst Anemia ASAD II (cervical intraepithelial neoplasia II) Obesity (BMI 30-39.9) Vitamin D deficiency Goiter Terence's disease Hypothyroidism Surgical History H/O LEEP Family History Family History Father Diabetes Hypertension Paternal Grandmother Diabetes Social History Social History Household Members: Children Household Members Other:: Housing: House Alcohol intake: never Patient Tobacco Use Status: Former Tobacco user Tobacco use type: Cigarette Years Smoked: 8 years e-Cigarette/Vaping Use: Never Used Second Hand Smoke Exposure: No Advance Directives: No Advance Directives Information Provided: Yes service: No Current occupational status: 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 Oriented X3. No acute distress. ENT: Pharynx normal. Oral Mucosa moist tympanic membrane intact Neck: Normal inspection. Neck supple. CVS: Normal heart rate and rhythm. Pulses normal. Respiratory: No respiratory distress. Equal air entry bilateral, no wheezing/rales/rhonchi abd; soft nontender Skin: Skin warm and dry. Normal skin color. Normal skin turgor. Extremities: No lower extremity edema. Neuro: Oriented X 3. Course Course Course Narrative: This is a Rapid Medical Examination (RME) performed by Nicholas Justice PA-C in triage. Full HPI, ROS, assessment and treatment plan per primary provider in the Main ED. 39 yo female presents to the ER for evaluation of cough, sore throat, chest congestion, headache and watery eyes for the last 1 week. Slightly tachycardic in triage, saturating well on RA 99%, speaking in complete sentences. Plan: CXR, covid, strep Medications Administered Discontinued Medications Generic Name Dose Route Start Last Admin Trade Name Freq PRN Reason Stop Dose Admin Cefuroxime Axetil 500 mg 02/15/24 19:32 02/15/24 20:09 Cefuroxime Axetil 500 Mg Tablet PO 02/15/24 19:33 500 mg ONCE ONE Administration Guaifenesin/Codeine Phosphate 10 ml 02/15/24 19:32 02/15/24 20:09 Guaifen/Codeine Sf 200/20/10ml 10 Ml Liquid PO 02/15/24 19:33 10 ml ONCE ONE Administration Ibuprofen 600 mg 02/15/24 19:32 02/15/24 20:09 Ibuprofen 600 Mg Tablet PO 02/15/24 19:33 600 mg ONCE ONE Administration Medical Decision Making Medical Decision Making MDM Narrative: Patient with acute bronchitis will prescribed albuterol inhaler antibiotic Lab Data MDM Lab Attestation statement: I reviewed the patient's lab results. Labs: Lab Results 02/15/24 Range/Units 18:11 COVID-19 (NUHA) Negative (Negative) COVID-19 Clin Com See Note S. pyogenes GrpA KAY Negative (Negative) Independent Interpretation I performed an independent interpretation of an: Plain X-Ray Discharge Plan Discharge Clinical Impression: Bronchitis Patient Disposition: Home, Self-Care Instructions: Acute Bronchitis (ED) Additional Instructions: Take antibiotics cough drops and inhaler as prescribed Follow with your PCP if not better Prescriptions: New benzonatate 200 mg capsule 200 mg PO TID PRN (Reason: cough) Qty: 30 0RF cefuroxime axetil 500 mg tablet 500 mg PO BID 7 Days Qty: 14 0RF albuterol sulfate 90 mcg/actuation HFA aerosol inhaler 2 puff inhalation Q6H PRN (Reason: shortness of breath or wheezing) Qty: 8.5 0RF No Action cholecalciferol (vitamin D3) 25 mcg (1,000 unit) capsule 50 mcg PO ONCE 90 Days Qty: 180 5RF levothyroxine 112 mcg tablet 112 mcg PO DAILY Qty: 90 1RF sennosides-docusate sodium [Senna-S] 8.6-50 mg tablet 4 tab-cap PO BEDTIME 90 Days Qty: 360 11RF Mirena 20 mcg/24 hours (7 yrs) 52 mg intrauterine device intrauterine Print Language: Tamazight
[2024-02-15 19:14] LABS: COVID-19 Test Negative (Negative); IDNOW Serial# 58CA691E; IDNOW Serial# 6674DD1D; Strep A Nucleic Acid Negative (Negative)
[2024-02-15] MEDS: guaiFEN/Codeine SF 200/20/10ML 10 ML LIQUID PO (20:09)
[2024-02-15] MEDS: Ibuprofen 600 MG TABLET PO (20:09)
[2024-02-15] MEDS: cefuroxime axetiL 500 MG TABLET PO (20:09)
[2024-02-15] MEDS: Albuterol Sulfate 90 MCG 8 GM INHALER 2 PUFF INHALE (20:33)
[2024-02-15 20:40] VITALS: BP 131/93; PULSE 99; RESP 18; TEMP 37.2; O2SAT 100
== END 2024-02-15 20:41 | disposition home or self-care (01) ==
PROVIDERS: Physician Assistant; Emergency Provider Internal Medicine; PCP Internal Medicine
DX: J40 Bronchitis, not specified as acute or chronic (principal); Z11.52 Encounter for screening for COVID-19; R05.9 Cough, unspecified
CPT/HCPCS: 71046; 87635; 87651; 99283

== ENCOUNTER 2024-05-09 08:23 | Outpatient (AMB) | payer OTHER, SELFPAY ==
--- NOTE | 2024-05-09 08:24 | A.OFFVIS_ITS ---
Vital Signs 05/09/24 08:27 Height 5 ft 5 in Weight 195 lb 5.273 oz BMI 32.5 BP 112/82 Blood Pressure Location Rt brachial Position Sitting Pulse 93 Pulse Source Pulse Oximeter Intake Visit Reasons: f/u hypothyroidism and MNG Intake Note: Patient present today for Hypothyroidism and MNG follow up visit. 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 Accompanied by: Self / Same As Patient Allergies No Known Allergies Allergy (Verified 05/09/24 08:27) Medication List - Last Reconciled 05/09/24 by Vladislav Anthony MD albuterol sulfate 90 mcg/actuation 2 puffs inhalation Q6H PRN benzonatate 200 mg PO TID PRN cefuroxime axetil 500 mg PO BID 7 days cholecalciferol (vitamin D3) 50 mcg (2 x 25 mcg (1,000 unit)) PO ONCE 90 days levonorgestrel (Mirena) intrauterine levothyroxine 112 mcg PO DAILY sennosides-docusate sodium 8.6-50 mg (Senna-S) 4 tab-caps (4 x 8.6-50 mg) PO BEDTIME 90 days HPI Comments Details: 39 yo female, today for fup visit, hypothyroidism. Sheis taking 112 mcg levothyroxine She was diagnosed with Terence's disease 2012. trended TSH 2005 to 2016 from 1.69 to 46.64 MIU/ML 07/12/12 TSH 46.64 MIU/ML T4 3.9 mcg/ml TPO > 1000. 02/03/17 TSH 3.68 MIU/ML FT4 0.89 ng/ DL. . He denies insomnia, fatigue, denies dry skin, dysphagia, dyspnea, dysphonia, tremors, palpitations, irritability, anxiety. Family History: negative for thyroid disease. 02/01/2020 ultrasound thyroid. Right Thyroid Lobe: 6.3 x 1.8 x 2.0 cm, volume 11.9 mL. Parenchyma: The gland echotexture is heterogeneous. Thyroid vascularity is increased. Left Thyroid Lobe: 5.2 x 1.3 x 2.1 cm, volume 7.4 mL. Parenchyma: The gland echotexture is heterogeneous. Thyroid vascularity is increased. Isthmus: 0.7 cm in maximum AP dimension. RIGHT THYROID LOBE: Within the mid gland there is a 2 mm calcification which is smoothly marginated without internal vascular flow. Within the upper pole there is a 5 x 4 x 3 mm heterogeneous and hypoechoic smoothly marginated lesion without calcification. There is some intranodular blood flow seen. ISTHMUS: No nodules. LEFT THYROID LOBE: Within the lower pole there is a 1.1 x 0.7 x 0.9 cm heterogeneous and isoechoic nodule with somewhat irregular margins. No calcification is evident. There is intranodular blood flow seen. NODES: No lymphadenopathy is seen in the tissue surrounding the thyroid gland. Laboratory Tests 10/17/20 13:40 TSH 18.72 H Free T4 0.70 L Laboratory Tests 07/23/19 07/23/19 08:48 08:48 25-OH Vitamin D Total 22.6 Free T4 (Dialysis) 0.8 L TSH 3rd Generation 3.40 Recent thyroid ultrasound shows left lower pole nodule has slightly increased in size to over cm . She is status post FNA of this nodule with benign cytology [facility] Medical History Skin tags, multiple acquired Impaired glucose tolerance GERD (gastroesophageal reflux disease) Ovarian cyst Anemia ASAD II (cervical intraepithelial neoplasia II) Obesity (BMI 30-39.9) Vitamin D deficiency Goiter Terence's disease Hypothyroidism Surgical History H/O LEEP Family History Father Diabetes Hypertension Paternal Grandmother Diabetes Social History Household Members: Children Household Members Other:: Housing: House Alcohol intake: never Patient Tobacco Use Status: Former Tobacco user Tobacco use type: Cigarette Years Smoked: 8 years e-Cigarette/Vaping Use: Never Used Second Hand Smoke Exposure: No service: No Current occupational status: employed 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 There are no discrete nodules palpated Assessment & Plan Assessment & Plan (1) Hypothyroidism: Comment: Julylightly heterogeneous thyroid gland with solitary nonsuspicious nodule. 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 She appears to be clinically euthyroid . Blood work checked 3 months ago was done by primary care provider in showed elevated TSH but patient was not compliant with levothyroxine Plan is to recheck TSH and free T4 adjust levothyroxine accordingly . Will have patient follow up with Dr. 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
[2024-05-09 08:27] VITALS: BP 112/82; PULSE 93; BMI 32.5
== END 2024-05-09 08:40 | disposition home or self-care (01) ==
PROVIDERS: PCP Internal Medicine; Visit Provider Internal Medicine Endocrinology, Diabetes & Metabolism
DX: E03.8 Other specified hypothyroidism (principal); E06.3 Autoimmune thyroiditis
CPT/HCPCS: 99213

== ENCOUNTER → 2024-05-09 08:23 | Outpatient (BNVA) | payer OTHER, SELFPAY | PROVIDERS: PCP Internal Medicine; Visit Provider Internal Medicine Endocrinology, Diabetes & Metabolism | DX: E03.8 Other specified hypothyroidism (principal); E06.3 Autoimmune thyroiditis | CPT/HCPCS: 99212 ==

== ENCOUNTER 2024-05-09 08:43 | Outpatient (REF) | payer OTHER, SELFPAY ==
[2024-05-12 05:09] LABS: TS Negative Control Passed; TS Panel A 0; TS Panel B 0; TS Positive Control Passed; TSpotTB Negative (Negative)
== END 2024-05-09 08:44 | disposition home or self-care (01) ==
LOC: HO.LAB 08:43
PROVIDERS: PCP Internal Medicine; Visit Provider Internal Medicine
DX: Z00.00 Encounter for general adult medical examination without abnormal findings (principal)
CPT/HCPCS: 36415; 86481

== ENCOUNTER 2024-06-03 12:45 | Outpatient (AMB) | payer OTHER, SELFPAY ==
--- NOTE | 2024-06-03 12:59 | MHC.OFFVIS ---
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 Doing well with concerns. Mirena user, has random menses. Currently is sexually active, using condoms. She denies vaginal itching and irritation. STI screening offered; she declines. She tries to eat healthy and stays active with exercise. Denies family history of breast, ovarian or colon cancer. Last pap smear 2021, negative. [facility] Medical History (Updated 06/03/24 @ 13:33 by Tosin Alexander CNM) IUD (intrauterine device) in place Skin tags, multiple acquired Impaired glucose tolerance GERD (gastroesophageal reflux disease) Ovarian cyst Anemia ASAD II (cervical intraepithelial neoplasia II) Obesity (BMI 30-39.9) Vitamin D deficiency Goiter Terence's disease Hypothyroidism Surgical History H/O LEEP Family History Father Diabetes Hypertension Paternal Grandmother Diabetes Social History Household Members: Children Household Members Other:: Housing: House Alcohol intake: never Patient Tobacco Use Status: Former Tobacco user Tobacco use type: Cigarette Years Smoked: 8 years e-Cigarette/Vaping Use: Never Used Second Hand Smoke Exposure: No service: No Current occupational status: employed 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 Sexual orientation: Straight/Heterosexual Gender identity: Female Cognitive needs: No Hearing needs: No Vision needs: Yes Female Reproductive History Menstrual Age of Menarche: 13 control method: progestin IUCD (Mirena 09/2019) Total pregnancies: 5 Full term: 5 Number of Living Children: 5 Ab spontaneous: 1 Multiple births: 1 Date of last pap smear: 02/18/22 (neg pap and hpv) History of abnormal pap smear: Yes (see intake note) Review of Systems Const All systems reviewed & are unremarkable except as noted in HPI and below Reports as per HPI Eyes Reports no additional complaints ENT Reports no additional complaints Card Reports no additional complaints Resp Reports no additional complaints GI Reports as per HPI and Reports no additional complaints Reports as per HPI Musc Reports no additional complaints Skin/Breast Reports as per HPI Neuro Reports no additional complaints Psych Reports no additional complaints Endo Reports no additional complaints Neri/Lymph Reports no additional complaints Aller/Immun Reports no additional complaints Physical Exam Vital Signs: Last Vital Signs BP 114/70 06/03/24 13:01 BMI result Body Mass Index 31.8 Const General: cooperative, healthy appearing, no acute distress, well developed and alert Orientation/consciousness: patient oriented x3 HEENT Head: Yes normal to inspection Eyes General: appearance normal, both eyes and all related structures Neck Neck: Yes normal visual inspection Thyroid: Thyroid normal Chest Chest palpation & inspection: normal inspection of the chest and other (no puckering, dimpling, peau de orange, retraction, discharge, masses) Breast/axilla inspection: normal inspection of the breasts Breast/axilla palpation: normal palpation of the breasts Resp Effort & Inspection: normal respiratory effort GI Inspection: Yes normal to inspection Palpation (GI): Soft to palpation Rectal Exam - Female: deferred General: Yes bladder normal to palpation External Female Exam: normal external appearance and normal appearance of the urethra Speculum Exam - Vagina: normal appearance of the vagina, normal palpation and normal vaginal discharge Speculum Exam - Cervix: normal appearance of the cervix, normal palpation and Other cervical findings present (IUD strings at the os) Bimanual exam- vagina & uterus: normal bimanual exam, normal palpation, uterine size normal, bladder normal to palpation, normal palpation and non-tender Bimanual Exam- Adnexa, other: no masses Skin General skin exam: no rashes or lesions noted Rashes: no rashes Neuro General: patient oriented x3 Cognition (Neuro): normal cognition Extrem General: Yes normal to inspection Psych Attitude: cooperative Thought process: Normal thought process present Assessment & Plan Assessment & Plan (1) Encounter for annual routine gynecological examination: Code(s): Z01.419 - Encounter for gynecological examination (general) (routine) without abnormal findings Category: Medical (2) History of abnormal cervical Pap smear: Code(s): Z87.42 - Personal history of other diseases of the female genital tract Plan Discussed: Current recommendations for pap smears per ASCCP guidelines. Pap due in 2025. Breast awareness and periodic breast exams. Maintain a healthy lifestyle including a well balanced diet and routine exercise. Patient verbalizes understanding and agrees to the plan of care. She was given opportunity to ask questions and all questions were answered to the best of my ability. RTO in one year for annual business performance advisor examination. This note is constructed using voice recognition software. While every effort has been made to ensure accuracy, architectural design professor errors may have been included. Coding Level of Care Code Est Pt Prev Care 18-39y(55494) Diagnoses Encounter for annual routine gynecological examination Z01.419 History of abnormal cervical Pap smear Z87.42
[2024-06-03 13:01] VITALS: BP 114/70; BMI 31.8
== END 2024-06-03 13:34 | disposition home or self-care (01) ==
PROVIDERS: PCP Internal Medicine; Visit Provider Advanced Practice Midwife
DX: Z01.419 Encounter for gynecological examination (general) (routine) without abnormal findings (principal); Z87.42 Personal history of other diseases of the female genital tract
CPT/HCPCS: 99395

== ENCOUNTER → 2024-06-03 12:45 | Outpatient (BNVA) | payer OTHER, SELFPAY | PROVIDERS: PCP Internal Medicine; Visit Provider Advanced Practice Midwife | DX: Z01.419 Encounter for gynecological examination (general) (routine) without abnormal findings (principal); Z87.42 Personal history of other diseases of the female genital tract | CPT/HCPCS: 99395 ==

== ENCOUNTER 2024-07-02 07:51 | Outpatient (REF) | payer OTHER, SELFPAY ==
[2024-07-02 08:59] LABS: Free T4 (Free Thyroxine) 1.14 ng/dL (0.71-1.85); Thyroid Stimulating Hormone 0.78 uIU/mL (0.32-4.0)
== END 2024-07-02 07:52 | disposition home or self-care (01) ==
LOC: HO.LAB 07:51
PROVIDERS: PCP Internal Medicine; Visit Provider Internal Medicine Endocrinology, Diabetes & Metabolism
DX: E03.8 Other specified hypothyroidism (principal); E06.3 Autoimmune thyroiditis
CPT/HCPCS: 36415; 84439; 84443

== ENCOUNTER 2024-07-08 08:49 | Outpatient (AMB) | payer OTHER, SELFPAY ==
[2024-07-08 08:50] VITALS: BP 124/82; PULSE 87; BMI 32.8
--- NOTE | 2024-07-08 08:50 | A.OFFVIS_ITS ---
Vital Signs 3 07/08/24 08:50 Height 5 ft 5 in Weight 196 lb 13.965 oz BMI 32.8 BP 124/82 Blood Pressure Location Lt brachial Position Sitting Pulse 87 Pulse Source Pulse Oximeter Intake Visit Reasons: f/u hypothyroidism/MNG with Dr. Dalton Intake Note: Patient present today for hypothyroidism/MNG office visit. Recovery Collector Required: No Accompanied by: Self / Same As Patient Allergies No Known Allergies Allergy (Verified 07/08/24 08:55) Medication List - Last Reconciled 07/08/24 by Nadja Dalton MD cholecalciferol (vitamin D3) 50 mcg (2 x 25 mcg (1,000 unit)) PO ONCE 90 days levonorgestrel (Mirena) intrauterine levothyroxine 112 mcg PO DAILY sennosides-docusate sodium 8.6-50 mg (Senna-S) 4 tab-caps (4 x 8.6-50 mg) PO BEDTIME 90 days HPI Comments Details: 39 yo female, today for fup visit, for hypothyroidism and multinodular goiter. History of Terence's thyroiditis/hypothyroidism Sheis taking 112 mcg levothyroxine , good adherence, proper administration She was diagnosed with Terence's disease 2012. Started on levothyroxine in 2016. Labs 07/02/2024 showed normal TSH of 0.78, normal free T4. Patient currently denies heat or cold intolerance, diarrhea or constipation, hair loss, palpitation, anxiety, weight changes, mood changes, low energy, changes in appearance of eyes or vision changes, tremors, increased diaphoresis or dry skin. ? Patient denies any history of childhood neck radiation. Denies having ever used lithium, amiodarone or biotin supplements. Patient denies any family history of thyroid cancer. Family History: both side grandmothers had thyroidectomy, unclear cause On mirena not planning 5 pregnancies in the past Multinodular goiter Has had thyroid nodules at least since 2019. Ultrasound from January 2020 showed a subcentimeter right upper pole nodule 5 mm, mixed cystic solid, hypoechoic per report without any calcifications. That would make it a TR 3 nodule. No need for follow up per size. Left lower pole 1.1 cm nodule isoechoic with irregular margins per report. Ultrasound thyroid last done July 2022 showed increase in the size of the left lower pole nodule to 1.2 cm, solid, isoechoic, TR 3 nodule. FNA of the nodule 03/12/2023: Left thyroid nodule FNA with benign cytology. Patient denies any difficulty swallowing, pain on swallowing or voice changes or difficulty breathing. Patient denies any family history of thyroid cancer. Family History: both side grandmothers had thyroidectomy, unclear cause Physical exam General: sitting comfortably in no acute distress HEENT: normocephalic/atraumatic, moist oral mucosa Neck: supple, palpable 1 cm left-sided nodule Cardiac: normal heart sounds Pulm: normal breath sounds B/L, no added breath sounds Abd: not distended, no tenderness Extremities: no edema, no signs of myxedema Neuro: AAO x3, Speech: normal, Laboratory Tests 02/13/24 07/02/24 08:25 07:56 TSH 4.87 H 0.78 Free T4 0.89 1.14 US THYROID 07/31/22 CLINICAL INFORMATION: Nontoxic multinodular goiter. COMPARISON: Ultrasound thyroid 02/01/2020 and 09/15/2018. TECHNIQUE: Linear transducer grayscale and color Doppler examination with attention to the region of the thyroid. FINDINGS: SIZE: Measurements of the thyroid lobes and nodules are given in sagittal, anteroposterior and transverse dimensions respectively. Right Thyroid Lobe: 6.0 x 1.5 x 1.6 cm, volume 7.5 mL. Previously 6.3 x 1.8 x 2.2 cm, volume 11.9 mL. Parenchyma: The gland echotexture is heterogeneous. Thyroid vascularity is increased. Left Thyroid Lobe: 5.6 x 1.4 x 1.7 cm, volume 7.0 mL. Previously 5.2 x 1.3 x 2.1 cm, volume 7.4 mL. Parenchyma: The gland echotexture is heterogeneous. Thyroid vascularity is increased. Isthmus: 0.8 cm in maximum AP dimension. Previously 0.7 cm. Estimated total number of nodules greater than or equal to 1 cm: 1. Sheet Metal Contractor nodules are described as follows: 1. Location: Left inferior. Size: 1.2 x 0.7 x 1.1 cm, volume 0.5 mL. Previously: 0.9 x 0.7 x 0.9 cm, volume 0.3 mL. Nodule characteristics: Composition: Solid/almost completely solid (2). Echogenicity: Isoechoic (1). Shape: Not taller than wide (0). Margins: Smooth (0). Echogenic Foci: None (0). ACR TI-RADS total points: 3 ACR TI-RADS category: 3 Significant change in size (>/= 20% in 2 dimensions and minimal increase of 2 mm or 50% or greater increase in volume): Slightly improved. Change in features: None Change in ACR TI-RADS risk category: Not applicable. NODES: No lymphadenopathy is seen in the tissue surrounding the thyroid gland. US/US thyroid IMPRESSION: Slightly heterogeneous thyroid gland with solitary nonsuspicious nodule. Previously seen right lobe upper pole nodule is not seen at this time. There is diffuse heterogeneous thyroid gland and likely pseudo nodule. 02/01/2020 ultrasound thyroid. Right Thyroid Lobe: 6.3 x 1.8 x 2.0 cm, volume 11.9 mL. Parenchyma: The gland echotexture is heterogeneous. Thyroid vascularity is increased. Left Thyroid Lobe: 5.2 x 1.3 x 2.1 cm, volume 7.4 mL. Parenchyma: The gland echotexture is heterogeneous. Thyroid vascularity is increased. Isthmus: 0.7 cm in maximum AP dimension. RIGHT THYROID LOBE: Within the mid gland there is a 2 mm calcification which is smoothly marginated without internal vascular flow. Within the upper pole there is a 5 x 4 x 3 mm heterogeneous and hypoechoic smoothly marginated lesion without calcification. There is some intranodular blood flow seen. ISTHMUS: No nodules. LEFT THYROID LOBE: Within the lower pole there is a 1.1 x 0.7 x 0.9 cm heterogeneous and isoechoic nodule with somewhat irregular margins. No calcification is evident. There is intranodular blood flow seen. NODES: No lymphadenopathy is seen in the tissue surrounding the thyroid gland. [facility] Medical History (Updated 06/03/24 @ 13:33 by Tosin Alexander CNM) IUD (intrauterine device) in place Skin tags, multiple acquired Impaired glucose tolerance GERD (gastroesophageal reflux disease) Ovarian cyst Anemia ASAD II (cervical intraepithelial neoplasia II) Obesity (BMI 30-39.9) Vitamin D deficiency Goiter Terence's disease Hypothyroidism Surgical History H/O LEEP Family History Father Diabetes Hypertension Paternal Grandmother Diabetes Social History Household Members: Children Household Members Other:: Housing: House Alcohol intake: never Patient Tobacco Use Status: Former Tobacco user Tobacco use type: Cigarette Years Smoked: 8 years e-Cigarette/Vaping Use: Never Used Second Hand Smoke Exposure: No service: No Current occupational status: employed 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 Previously seen right lobe upper pole nodule is not seen at this time. There is diffuse heterogeneous thyroid gland and likely pseudo nodule. February 2023Review of the cytology preparation demonstrates a cellular specimen composed of polymorphic lymphoid cells and scattered Hurthle cells suggestive of chronic lymphocytic (Terence) thyroiditis in the proper clinical setting Code(s): E04.1 - Nontoxic single thyroid nodule Category: Medical Plan: 39-year-old female with no personal history of head or neck radiation, with no family history of thyroid cancer, with multinodular goiter. Has had thyroid nodules at least since 2019. Ultrasound from January 2020 showed a subcentimeter right upper pole nodule 5 mm, mixed cystic solid, hypoechoic per report without any calcifications. That would make it a TR 3 nodule. No need for follow up per size. Left lower pole 1.1 cm nodule isoechoic with irregular margins per report. Ultrasound thyroid last done July 2022 showed increase in the size of the left lower pole nodule to 1.2 cm, solid, isoechoic, TR 3 nodule. FNA of the nodule 03/12/2023: Left thyroid nodule FNA with benign cytology. Given heterogenous appearance of the thyroid gland likely the right superior pole nodule with a pseudonodule. Patient does not have any compressive symptoms. Plan: -ordered thyroid ultrasound -follow up 4 weeks to discuss results (2) Hypothyroidism: Comment: Julylightly heterogeneous thyroid gland with solitary nonsuspicious nodule. 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 She appears to be clinically and biochemically euthyroid. 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
== END 2024-07-08 09:11 | disposition home or self-care (01) ==
PROVIDERS: PCP Internal Medicine; Visit Provider Student in an Organized Health Care Education/Training Program
DX: E04.1 Nontoxic single thyroid nodule (principal); E03.8 Other specified hypothyroidism; E06.3 Autoimmune thyroiditis
CPT/HCPCS: 99214

== ENCOUNTER → 2024-07-08 08:49 | Outpatient (BNVA) | payer OTHER, SELFPAY | PROVIDERS: PCP Internal Medicine; Visit Provider Student in an Organized Health Care Education/Training Program | DX: E04.1 Nontoxic single thyroid nodule (principal); E03.8 Other specified hypothyroidism; E06.3 Autoimmune thyroiditis | CPT/HCPCS: 99212 ==

== ENCOUNTER → 2024-08-03 11:18 | Outpatient (BNV) | payer OTHER, SELFPAY | PROVIDERS: PCP Internal Medicine; Visit Provider Radiology Diagnostic Radiology | DX: E04.1 Nontoxic single thyroid nodule (principal) | CPT/HCPCS: 76536 ==

== ENCOUNTER 2024-08-11 14:09 | Outpatient (AMB) | payer OTHER, SELFPAY ==
[2024-08-11 14:18] VITALS: BP 130/88; PULSE 85; O2SAT 98; BMI 33.1
--- NOTE | 2024-08-11 14:18 | MHC.OFFVIS ---
Vital Signs 08/11/24 14:18 Height 5 ft 5 in Weight 198 lb 13.711 oz BMI 33.1 BP 130/88 Blood Pressure Location Lt brachial Position Sitting Pulse 85 Pulse Source Pulse Oximeter Pulse Oximetry (%) 98 Oxygen Delivery Method Room Air Intake Visit Reasons: hypothyroidism/MNG Intake Note: Patient present today for hypothyroidism/MNG office visit. 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 History of Terence's thyroiditis/hypothyroidism Sheis taking 112 mcg levothyroxine , good adherence, proper administration She was diagnosed with Terence's disease 2012. Started on levothyroxine in 2016. Labs 07/02/2024 showed normal TSH of 0.78, normal free T4. Patient currently denies heat or cold intolerance, diarrhea or constipation, hair loss, palpitation, anxiety, weight changes, mood changes, low energy, changes in appearance of eyes or vision changes, tremors, increased diaphoresis or dry skin. ? Patient denies any history of childhood neck radiation. Denies having ever used lithium, amiodarone or biotin supplements. Patient denies any family history of thyroid cancer. Family History: both side grandmothers had thyroidectomy, unclear cause On mirena not planning 5 pregnancies in the past Multinodular goiter Has had thyroid nodules at least since 2019. Ultrasound from January 2020 showed a subcentimeter right upper pole nodule 5 mm, mixed cystic solid, hypoechoic per report without any calcifications. That would make it a TR 3 nodule. No need for follow up per size. Left lower pole 1.1 cm nodule isoechoic with irregular margins per report. Ultrasound thyroid last done July 2022 showed increase in the size of the left lower pole nodule to 1.2 cm, solid, isoechoic, TR 3 nodule. FNA of the nodule 03/12/2023: Left thyroid nodule FNA with benign cytology. Patient denies any difficulty swallowing, pain on swallowing or voice changes or difficulty breathing. Patient denies any family history of thyroid cancer. Family History: both side grandmothers had thyroidectomy, unclear cause Interval history Ultrasound thyroid from July 2024 showed stable size of the left thyroid nodule at 1.1 cm. She denies any compressive symptoms Physical exam General: sitting comfortably in no acute distress HEENT: normocephalic/atraumatic, moist oral mucosa Neck: supple, palpable 1 cm left-sided nodule Cardiac: normal heart sounds Pulm: normal breath sounds B/L, no added breath sounds Abd: not distended, no tenderness Extremities: no edema, no signs of myxedema Neuro: AAO x3, Speech: normal, Laboratory Tests 02/13/24 07/02/24 08:25 07:56 TSH 4.87 H 0.78 Free T4 0.89 1.14 US THYROID 08/03/24 CLINICAL INFORMATION: Nontoxic single thyroid nodule. COMPARISON: None available. TECHNIQUE: Linear transducer grayscale and color Doppler examination with attention to the region of the thyroid. FINDINGS: SIZE: Measurements of the thyroid lobes and nodules are given in sagittal, anteroposterior and transverse dimensions respectively. Right Thyroid Lobe: 5.8 x 1.4 x 1.5 cm, volume 6.3 mL. Parenchyma: The gland echotexture is heterogeneous. Thyroid vascularity is normal. Left Thyroid Lobe: 5.5 x 1.4 x 1.9 cm, volume 7.6 mL. Parenchyma: The gland echotexture is heterogeneous. Thyroid vascularity is normal. Isthmus: 0.6 cm in maximum AP dimension. Estimated total number of nodules greater than or equal to 1 cm: 1. [employer]iance Professional nodules are described as follows: 1. Location: Lower pole left thyroid lobe. Size: 1.1 x 0.6 x 1.1 cm, volume 0.4 mL. Previously: 1.2 x 0.7 x 1.1 cm, volume: 0.5 cc. Nodule characteristics: Composition: Solid (2). Echogenicity: Isoechoic (1). Shape: Not taller than wide (0). Margins: Ill-defined (0). Echogenic Foci: No 0 ACR TI-RADS total points: 3 ACR TI-RADS category: 3 NODES: No lymphadenopathy is seen in the tissue surrounding the thyroid gland. US/US thyroid IMPRESSION: ACR TI RADS 3. Overall no gross change in size morphology or echotexture. US THYROID 07/31/22 CLINICAL INFORMATION: Nontoxic multinodular goiter. COMPARISON: Ultrasound thyroid 02/01/2020 and 09/15/2018. TECHNIQUE: Linear transducer grayscale and color Doppler examination with attention to the region of the thyroid. FINDINGS: SIZE: Measurements of the thyroid lobes and nodules are given in sagittal, anteroposterior and transverse dimensions respectively. Right Thyroid Lobe: 6.0 x 1.5 x 1.6 cm, volume 7.5 mL. Previously 6.3 x 1.8 x 2.2 cm, volume 11.9 mL. Parenchyma: The gland echotexture is heterogeneous. Thyroid vascularity is increased. Left Thyroid Lobe: 5.6 x 1.4 x 1.7 cm, volume 7.0 mL. Previously 5.2 x 1.3 x 2.1 cm, volume 7.4 mL. Parenchyma: The gland echotexture is heterogeneous. Thyroid vascularity is increased. Isthmus: 0.8 cm in maximum AP dimension. Previously 0.7 cm. Estimated total number of nodules greater than or equal to 1 cm: 1. [employer] Professional nodules are described as follows: 1. Location: Left inferior. Size: 1.2 x 0.7 x 1.1 cm, volume 0.5 mL. Previously: 0.9 x 0.7 x 0.9 cm, volume 0.3 mL. Nodule characteristics: Composition: Solid/almost completely solid (2). Echogenicity: Isoechoic (1). Shape: Not taller than wide (0). Margins: Smooth (0). Echogenic Foci: None (0). ACR TI-RADS total points: 3 ACR TI-RADS category: 3 Significant change in size (>/= 20% in 2 dimensions and minimal increase of 2 mm or 50% or greater increase in volume): Slightly improved. Change in features: None Change in ACR TI-RADS risk category: Not applicable. NODES: No lymphadenopathy is seen in the tissue surrounding the thyroid gland. US/US thyroid IMPRESSION: Slightly heterogeneous thyroid gland with solitary nonsuspicious nodule. Previously seen right lobe upper pole nodule is not seen at this time. There is diffuse heterogeneous thyroid gland and likely pseudo nodule. 02/01/2020 ultrasound thyroid. Right Thyroid Lobe: 6.3 x 1.8 x 2.0 cm, volume 11.9 mL. Parenchyma: The gland echotexture is heterogeneous. Thyroid vascularity is increased. Left Thyroid Lobe: 5.2 x 1.3 x 2.1 cm, volume 7.4 mL. Parenchyma: The gland echotexture is heterogeneous. Thyroid vascularity is increased. Isthmus: 0.7 cm in maximum AP dimension. RIGHT THYROID LOBE: Within the mid gland there is a 2 mm calcification which is smoothly marginated without internal vascular flow. Within the upper pole there is a 5 x 4 x 3 mm heterogeneous and hypoechoic smoothly marginated lesion without calcification. There is some intranodular blood flow seen. ISTHMUS: No nodules. LEFT THYROID LOBE: Within the lower pole there is a 1.1 x 0.7 x 0.9 cm heterogeneous and isoechoic nodule with somewhat irregular margins. No calcification is evident. There is intranodular blood flow seen. NODES: No lymphadenopathy is seen in the tissue surrounding the thyroid gland. [facility] Medical History (Updated 06/03/24 @ 13:33 by Tosin Alexander CNM) IUD (intrauterine device) in place Skin tags, multiple acquired Impaired glucose tolerance GERD (gastroesophageal reflux disease) Ovarian cyst Anemia ASAD II (cervical intraepithelial neoplasia II) Obesity (BMI 30-39.9) Vitamin D deficiency Goiter Terence's disease Hypothyroidism Surgical History H/O LEEP Family History Father Diabetes Hypertension Paternal Grandmother Diabetes Social History Household Members: Children Household Members Other:: Housing: House Alcohol intake: never Patient Tobacco Use Status: Former Tobacco user Tobacco use type: Cigarette Years Smoked: 8 years e-Cigarette/Vaping Use: Never Used Second Hand Smoke Exposure: No service: No Current occupational status: employed 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 Previously seen right lobe upper pole nodule is not seen at this time. There is diffuse heterogeneous thyroid gland and likely pseudo nodule. February 2023Review of the cytology preparation demonstrates a cellular specimen composed of polymorphic lymphoid cells and scattered Hurthle cells suggestive of chronic lymphocytic (Terence) thyroiditis in the proper clinical setting Code(s): E04.1 - Nontoxic single thyroid nodule Category: Medical Plan: 39-year-old female with no personal history of head or neck radiation, with no family history of thyroid cancer, with multinodular goiter. Has had thyroid nodules at least since 2019. Ultrasound from January 2020 showed a subcentimeter right upper pole nodule 5 mm, mixed cystic solid, hypoechoic per report without any calcifications. That would make it a TR 3 nodule. No need for follow up per size. Left lower pole 1.1 cm nodule isoechoic with irregular margins per report. Ultrasound thyroid last done July 2022 showed increase in the size of the left lower pole nodule to 1.2 cm, solid, isoechoic, TR 3 nodule. FNA of the nodule 03/12/2023: Left thyroid nodule FNA with benign cytology. Given heterogenous appearance of the thyroid gland likely the right superior pole nodule with a pseudonodule. Patient does not have any compressive symptoms. Most recent thyroid ultrasound from July 2024 shows stable size of the left lower pole 1.1 cm nodule. At this point this nodule has remained stable over the past 5 years, we will plan to see her back in 1 year for clinical exam but likely we will get 1 more thyroid ultrasound in 2 years in July 2026 and if that shows stable size of the nodule, no need for further follow up. Plan: -follow up in 1 year -next thyroid ultrasound due July 2026 (2) Hypothyroidism: Comment: July 2022Slightly heterogeneous thyroid gland with solitary nonsuspicious nodule. 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 She appears to be clinically and biochemically euthyroid. She did notice that recently when she picked up the generic levothyroxine it was a different tablet from her prior tablets. I told her that differences in supply of generic levothyroxine can also cause absorption changes. Plan: -continue levothyroxine 112 mcg daily -repeat TSH and free T4 in 6 weeks, if that is normal we will communicate results to her and plan to repeat thyroid function prior to her follow up in 1 year -follow up in 1 year Plan See above Orders: Orders TSH reflex Free T4 6 Weeks E03.8 - Other specified hypothyroidism, E04.1 - Nontoxic single thyroid nodule, E06.3 - Autoimmune thyroiditis Patient Instructions: Do blood work in 6 weeks Continue levothyroxine 112cmcg daily Follow up in 1 year Coding Level of Care Code Est Pt Level 3 (50026) Diagnoses Left thyroid nodule E04.1 Hypothyroidism due to Terence's thyroiditis E03.8; E06.3 Hypothyroidism type: due to Terence's thyroiditis
== END 2024-08-11 15:01 | disposition home or self-care (01) ==
PROVIDERS: PCP Internal Medicine; Visit Provider Student in an Organized Health Care Education/Training Program
DX: E04.1 Nontoxic single thyroid nodule (principal); E03.8 Other specified hypothyroidism; E06.3 Autoimmune thyroiditis
CPT/HCPCS: 99213

== ENCOUNTER → 2024-08-11 14:09 | Outpatient (BNVA) | payer OTHER, SELFPAY | PROVIDERS: PCP Internal Medicine; Visit Provider Student in an Organized Health Care Education/Training Program | DX: E04.1 Nontoxic single thyroid nodule (principal); E03.8 Other specified hypothyroidism; E06.3 Autoimmune thyroiditis | CPT/HCPCS: 99212 ==

== ENCOUNTER 2024-09-24 08:13 | Outpatient (REF) | payer OTHER, SELFPAY ==
[2024-09-24 10:38] LABS: TSH reflex Free T4 0.76 uIU/mL (0.32-4.0)
== END 2024-09-24 08:14 | disposition home or self-care (01) ==
LOC: HO.LAB 08:13
PROVIDERS: PCP Internal Medicine; Visit Provider Student in an Organized Health Care Education/Training Program
DX: E04.1 Nontoxic single thyroid nodule (principal); E03.8 Other specified hypothyroidism; E06.3 Autoimmune thyroiditis
CPT/HCPCS: 36415; 84443

== ENCOUNTER 2024-11-22 09:13 | Outpatient (REF) | payer OTHER, SELFPAY ==
[2024-11-22 11:12] LABS: Free T4 (Free Thyroxine) 1.08 ng/dL (0.71-1.85); TSH reflex Free T4 2.58 uIU/mL (0.32-4.0); Thyroid Stimulating Hormone 2.58 uIU/mL (0.32-4.0)
== END 2024-11-22 09:14 | disposition home or self-care (01) ==
LOC: HO.LAB 09:13
PROVIDERS: PCP Internal Medicine; Visit Provider Student in an Organized Health Care Education/Training Program
DX: E03.8 Other specified hypothyroidism (principal); E04.1 Nontoxic single thyroid nodule; E06.3 Autoimmune thyroiditis
CPT/HCPCS: 36415; 84439; 84443

== ENCOUNTER 2025-02-15 13:03 | Outpatient (AMB) | payer OTHER, SELFPAY ==
--- NOTE | 2025-02-15 13:08 | A.OFFPC_ITS ---
Vital Signs 02/15/25 13:11 Height 5 ft 5 in Weight 201 lb BMI 33.4 BP 130/92 H Blood Pressure Location Lt brachial Position Sitting Pulse 89 Pulse Source Pulse Oximeter Pulse Oximetry (%) 99 Oxygen Delivery Method Room Air Intake Visit Reasons: Annual Exam- PHQ-9 needed. 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 Accompanied by: Self / Same As Patient Allergies No Known Allergies Allergy (Verified 02/15/25 13:10) Medication List - Last Reconciled 02/15/25 by Omid An MD cholecalciferol (vitamin D3) 50 mcg (2 x 25 mcg (1,000 unit)) PO ONCE 90 days levonorgestrel (Mirena) intrauterine levothyroxine 112 mcg PO DAILY sennosides-docusate sodium 8.6-50 mg (Senna-S) 4 tab-caps (4 x 8.6-50 mg) PO BEDTIME 90 days Tobacco use date assessed: 02/15/25 Dental Screening Dental Screen Date: 02/15/25 Did you have a dental visit in the last 12 months?: No Did you have a dental problem in the last 6 months where you did not have access to dental care?: No Was dental information given to patient?: No HPI Annual Exam- PHQ-9 needed. HPI Details 2 weeks of cjest pain with sob PFSH Medical History (Updated 02/15/25 @ 13:34 by Omid An MD) IUD (intrauterine device) in place Skin tags, multiple acquired Impaired glucose tolerance GERD (gastroesophageal reflux disease) Ovarian cyst Anemia ASAD II (cervical intraepithelial neoplasia II) Obesity (BMI 30-39.9) Vitamin D deficiency Goiter Terence's disease Hypothyroidism Surgical History H/O LEEP Family History Father Diabetes Hypertension Paternal Grandmother Diabetes Social History Household Members: Children Household Members Other:: Housing: House Alcohol intake: never Patient Tobacco Use Status: Former Tobacco user Tobacco use type: Cigarette Years Smoked: 8 years e-Cigarette/Vaping Use: Never Used Second Hand Smoke Exposure: No service: No Current occupational status: employed 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 1. Little interest or pleasure in doing things: not at all 2. Feeling down, depressed, or hopeless: not at all 3. Trouble falling or staying asleep, or sleeping too much: not at all 4. Feeling tired or having little energy: several days 5. Poor appetite or overeating: several days 6. Feeling bad about yourself - or that you are a failure or have let yourself or your family down: not at all 7. Trouble concentrating on things, such as reading the newspaper or watching television: not at all 8. Moving or speaking so slowly that other people could have noticed. Or the opposite - being so fidgety or restless that you have been moving around a lot more than usual: not at all 9. Thoughts that you would be better off or of hurting yourself in some way: not at all Total score: 2 32617 - PHQ-9 Billing: Yes Source: Developed by Drs. Vladislav Gutierrez, Leilani Foote, Herminio Arriaza and colleagues, with an educational ynes from [employer]. Thrive Questionnaire Date Thrive assessed: 02/15/25 I am a: Patient What is your living situation today?: I have a steady place to live Within the past 12 months, did the food you bought not last and you didn't have the money to get more?: Never true Within the past 12 months, did you worry whether your food would run out before you got money to buy more?: Never true Do you have trouble paying for medicines?: No Do you have trouble getting transportation to medical appointments?: No Do you have trouble paying your heating and electricity bill?: No Do you have trouble taking care of your child, family member or friend?: No Do you have trouble with day-to-day activities such as bathing, preparing meals, shopping, managing finances, etc.?: No Are you currently unemployed and looking for a job?: No Are you interested in more education?: No Please select the resources that you would like help with: None Currently or been in a relationship where the following occur: I choose not to answer THRIVE Score: 0 AUDIT C Alcohol Use Questionnaire (AUDIT-C) 1. How often do you have a drink containing alcohol?: Never Total Score: 0 NORRIS-7 AMB Questionnaire NORRIS-7 Date NORRIS - 7 assessed: 02/15/25 Feeling nervous, anxious, or on edge: 0 = Not at all Not being able to stop or control worryin = Not at all Worrying too much about different things: 0 = Not at all Trouble relaxin = Not at all Being so restless that it is hard to sit still: 0 = Not at all Becoming easily annoyed or irritable: 0 = Not at all Feeling afraid as if something awful might happen: 0 = Not at all Total NORRIS-7 score (0-4 normal; 5-9 mild; 10-14 moderate; 15-21 severe): 0 Source: Developed by Drs. Vladislav Gutierrez, Leilani Foote, Herminio Arriaza and colleagues, with an educational ynes from [employer]. NORRIS-7 Assessment Billing NORRIS-7 Assessment Tool: NORRIS-7 Assessment 08355 Review of Systems Const Denies poor appetite and Denies weakness Eyes Denies no additional complaints ENT Reports Normal hearing present, Denies dizziness, Denies nasal congestion, Denies tinnitus and Denies sore throat Card Denies chest pain, Denies syncope, Denies rapid heart rate and Denies dyspnea Resp Denies cough and Denies dyspnea GI Denies change in stool character, Reports constipation, Denies diarrhea, Denies nausea and Denies vomiting Denies urinary frequency, Denies difficulty voiding and Denies dysuria Neuro Reports Normal hearing present, Denies confusion, Denies dizziness, Denies syncope and Denies weakness Psych Denies confusion Physical exam (Primary Care) Vital Signs: Last Vital Signs Pulse 89 02/15/25 13:11 BP 130/92 H 02/15/25 13:11 Pulse Ox 99 02/15/25 13:11 Oxygen Delivery Method Room Air 02/15/25 13:11 BMI result Body Mass Index 33.4 Tobacco/Smoking Status: Tobacco use Status Tobacco use date assessed 02/15/25 02/15/25 13:14 Patient Tobacco Use Status Former Tobacco user 02/15/25 13:08 Tobacco use type Cigarette 02/15/25 13:08 e-Cigarette/Vaping Use Never Used 02/15/25 13:08 PHQ-9: PHQ-9 Score PHQ-9: Total score 2 02/15/25 13:14 Thrive Assessment: Date of Thrive Assessment Date Thrive assessed 02/15/25 02/15/25 13:14 Currently or been in a relationship where the following occur: I choose not to answer Const General: No confusion Orientation/consciousness: No confusion HENMT Head: Yes normocephalic Ears: external ears normal and TM's normal bilaterally Face and sinus: Yes normal facial exam Mouth: moist mucous membranes Throat: Yes tonsils normal Eyes Conjunctivae: conjunctivae normal Pupils: Equal, round and reactive pupils present and Pupil accommodation reflex normal Direct Ophthalmoscopy: normal light reflex Neck Neck: No lymphadenopathy Thyroid: Thyroid normal Chest Chest palpation & inspection: normal inspection of the chest Resp Effort & Inspection: normal respiratory effort and no audible wheezes Auscultation: clear to auscultation bilaterally, no crackles, no wheezes and lung sounds not diminished Cardio Rate: regular rate Rhythm: regular rhythm Peripheral pulses: radial pulses present and dorsalis pedis present GI Palpation (GI): no masses Auscultation: normal bowel sounds and normoactive bowel sounds Rectal Exam - Female: deferred Skin General skin exam: no rashes or lesions noted Rashes: no rashes Neuro General: No confusion Cranial nerves: Yes Equal, round and reactive pupils present and Yes Normal hearing present Cognition (Neuro): normal cognition Gait exam (Neuro): Normal gait present Motor exam (neuro): 5/5 motor strength present throughout Deep tendon reflexes (DTR's): Right brachioradialis reflex intensity grade: 2+, Left brachioradialis reflex intensity grade: 2+, Right patellar reflex intensity grade: 2+ and Left patellar reflex intensity grade: 2+ Extrem General: No edema Coding Level of Care Code Est Pt Prev Care 18-39y(12707) Diagnoses Annual physical exam Z00.00 GERD (gastroesophageal reflux disease) K21.9 Obesity (BMI 30-39.9) E66.9 Left thyroid nodule E04.1 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 (2) GERD (gastroesophageal reflux disease): Code(s): K21.9 - Gastro-esophageal reflux disease without esophagitis Category: Medical Plan: Avoid the foods that causes that usually spicy foods, tomato products, juices, coffee, soda and foods that your sensitive to. After eating do not lie down, allow 3-4 hours before in lie down. And keep the head of bed above 30 degrees to avoid the acid from going up. (3) Obesity (BMI 30-39.9): Code(s): E66.9 - Obesity, unspecified Category: Medical Plan: Diet and exercise (4) Left thyroid nodule: Comment: Julylightly heterogeneous thyroid gland with solitary nonsuspicious nodule. Previously seen right lobe upper pole nodule is not seen at this time. There is diffuse heterogeneous thyroid gland and likely pseudo nodule. February 2023Review of the cytology preparation demonstrates a cellular specimen composed of polymorphic lymphoid cells and scattered Hurthle cells suggestive of chronic lymphocytic (Terence) thyroiditis in the proper clinical setting Code(s): E04.1 - Nontoxic single thyroid nodule Category: Medical Plan: Patient continues to follow-up with endocrinology and next thyroid ultrasound is 2026 (5) Hypothyroidism: Comment: Julylightly heterogeneous thyroid gland with solitary nonsuspicious nodule. Fine-needle aspiration biopsy benign February 2023 Code(s): E03.9 - Hypothyroidism, unspecified Category: Medical Qualifiers: Hypothyroidism type: due to Terence's thyroiditis Qualified Code(s): E03.8 - Other specified hypothyroidism; E06.3 - Autoimmune thyroiditis Plan: Continue with thyroid medication 112 mcg once a day October 2024 last blood test (6) Impaired fasting glucose: Code(s): R73.01 - Impaired fasting glucose Category: Medical Plan: Decrease the amount of carbohydrate intake, pasta, bread, rice and potatoes are all sugar and that is aside from all the sweet stuff, remember that fruits are good but they are Sweet also. (7) Hypercholesterolemia: Code(s): E78.00 - Pure hypercholesterolemia, unspecified Category: Medical Plan: Avoid fried foods, chicken skin, eggs, butter margarine, pastries and meat. Be it pork or beef they have a lot of cholesterol (8) Blood pressure elevated without history of HTN: Code(s): R03.0 - Elevated blood-pressure reading, without diagnosis of hypertension Category: Medical Plan: need to check the BP and record Plan History of Present Illness The patient is a 40-year-old female presenting for a physical exam and management of chronic conditions. The patient has a history of obesity, which has been challenging to manage due to her hypothyroidism. She reports difficulty with weight loss despite dietary modifications and exercise attempts. Hypothyroidism has been managed with thyroid medication, and the patient continues to follow up with endocrinology. A thyroid ultrasound showed no changes, and a biopsy in February 2023 was benign. The patient is scheduled for a follow-up ultrasound in July 2026. The patient has a history of Gastroesophageal Reflux Disease (GERD) and impaired glucose tolerance. She has not had recent cholesterol testing but continues to manage her diet to control hypercholesterolemia. The patient was treated for bronchitis in January 2024 in the emergency room. Her blood work in January 2024 showed a normal blood count with no anemia. The patient reports experiencing muscle pain with movement, which she attributes to physical activity. She denies any significant family history of heart disease or cancer. The patient has been diagnosed with glaucoma, which is being monitored regularly. She denies any changes in her vision or symptoms related to glaucoma. Health Maintenance - Follow-up thyroid ultrasound scheduled for July 2026 - Blood pressure monitoring at home advised - Dietary modifications discussed to manage weight and cholesterol - Regular monitoring of glaucoma Social History - Substance Use: Denies alcohol, tobacco, and recreational drug use - Exercise: Reports difficulty maintaining regular exercise routine - Nutrition: Discussed dietary habits including reducing rice and soda intake Review of Systems - Cardiovascular: Reports chest pain with movement, denies palpitations or syncope - Respiratory: Denies dyspnea, cough, or wheezing - Gastrointestinal: Denies heartburn, nausea, vomiting, or changes in bowel habits - Neurological: Reports muscle pain with movement, denies dizziness or numbness - Ophthalmologic: Denies changes in vision, reports stable glaucoma Physical Exam General: Cooperative, obese, healthy appearing, comfortable, no acute distress and well developed Orientation: Patient oriented x3 Limitations: No limitations Head: Normal to inspection Ears: Hearing grossly normal bilaterally Nose: Normal external nose present Face and sinus: Normal facial exam Eyes: Appearance normal, both eyes and all related structures Neck: Normal visual inspection and Yes full ROM Respiratory: Normal respiratory effort and able to speak in complete sentences. Clear to auscultation bilaterally Cardiovascular: Regular rate and rhythm. Normal S1 and S2 GI: Normal to inspection. Soft to palpation and nontender Skin: No rashes or lesions noted Neuro: Patient oriented x3 Extremities: Normal to inspection, but patient reports numbness in hands and chest pain related to muscle movement. Results - Labs: Normal blood count, no anemia (January 2024) - Imaging: Thyroid ultrasound showed no changes, biopsy benign (February 2023) Plan The patient will continue with her current thyroid medication regimen and follow up with endocrinology as scheduled. A follow-up thyroid ultrasound is planned for July 2026 to monitor the multinodular goiter. For her obesity and impaired glucose tolerance, dietary modifications and increased physical activity are recommended. The patient is advised to reduce rice and soda intake to aid in weight management. Blood pressure monitoring at home is advised, with instructions to record readings and report back if consistently elevated. If hypertension persists, medication may be considered. Regular monitoring of glaucoma is advised, with continued follow-up with ophthalmology. Patient was informed and verbally consented to the use of an ambient scribe for clinic note documentation during this visit. Discussion Notes I discussed with the patient the importance of continuing her thyroid medication and the need for regular follow-up with endocrinology. We talked about the upcoming thyroid ultrasound scheduled for July 2026 and the significance of monitoring her multinodular goiter. We reviewed her dietary habits and the impact of rice and soda on her weight management, emphasizing the need for dietary changes and increased physical activity. I advised her to monitor her blood pressure at home and to report any consistently high readings. We also discussed the regular monitoring of her glaucoma and the importance of follow-up with ophthalmology. Patient Instructions - Continue thyroid medication as prescribed. - Schedule and attend follow-up thyroid ultrasound in July 2026. - Monitor blood pressure at home regularly and record readings. - Reduce intake of rice and soda to aid in weight management. - Follow up with ophthalmology for regular glaucoma monitoring.
[2025-02-15 13:11] VITALS: BP 130/92; PULSE 89; O2SAT 99; BMI 33.4
== END 2025-02-15 13:54 | disposition home or self-care (01) ==
LOC: HO.HMCH 13:04
PROVIDERS: PCP Internal Medicine; Visit Provider Internal Medicine
DX: Z00.00 Encounter for general adult medical examination without abnormal findings (principal); K21.9 Gastro-esophageal reflux disease without esophagitis; E66.9 Obesity, unspecified; Z68.33 Body mass index [BMI] 33.0-33.9, adult; E04.1 Nontoxic single thyroid nodule; E03.8 Other specified hypothyroidism; E06.3 Autoimmune thyroiditis; R73.01 Impaired fasting glucose; E78.00 Pure hypercholesterolemia, unspecified; R03.0 Elevated blood-pressure reading, without diagnosis of hypertension

== ENCOUNTER → 2025-02-15 13:03 | Outpatient (BNVA) | payer OTHER, SELFPAY | PROVIDERS: PCP Internal Medicine; Visit Provider Internal Medicine | DX: Z00.00 Encounter for general adult medical examination without abnormal findings (principal); K21.9 Gastro-esophageal reflux disease without esophagitis; E66.9 Obesity, unspecified; E04.1 Nontoxic single thyroid nodule; E03.8 Other specified hypothyroidism; E06.3 Autoimmune thyroiditis; R73.01 Impaired fasting glucose; E78.00 Pure hypercholesterolemia, unspecified; R03.0 Elevated blood-pressure reading, without diagnosis of hypertension; Z68.33 Body mass index [BMI] 33.0-33.9, adult | CPT/HCPCS: 96127; 99395 ==

== ENCOUNTER 2025-06-06 13:14 | Outpatient (AMB) | payer OTHER, SELFPAY ==
[2025-06-06 13:20] VITALS: BP 110/68; BMI 34.0
--- NOTE | 2025-06-06 13:20 | A.OFFVIS_ITS ---
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 Present Allergies No Known Allergies Allergy (Verified 06/06/25 13:24) Medication List - Last Reconciled 06/06/25 by Talita Broussard LPN cholecalciferol (vitamin D3) 50 mcg (2 x 25 mcg (1,000 unit)) PO ONCE 90 days levonorgestrel (Mirena) intrauterine levothyroxine 112 mcg PO DAILY sennosides-docusate sodium 8.6-50 mg (Senna-S) 4 tab-caps (4 x 8.6-50 mg) PO BEDTIME 90 days Is last menstrual period known: Yes Last menstrual period: 05/29/25 Post menopausal: No Patient : No Do you need a note to return to daycare/school/sports/work: No HPI Comments Details: Patient is a premenopausal woman presenting for annual examination. 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 Currently is sexually active. She denies vaginal itching or irritation. STI screening offered; she declined. She tries to eat healthy and stays active with exercise. Last pap smear 2021, negative. [facility] Medical History IUD (intrauterine device) in place Skin tags, multiple acquired Impaired glucose tolerance GERD (gastroesophageal reflux disease) Ovarian cyst Anemia ASAD II (cervical intraepithelial neoplasia II) Obesity (BMI 30-39.9) Vitamin D deficiency Goiter Terence's disease Hypothyroidism Surgical History H/O LEEP Family History Father Diabetes Hypertension Paternal Grandmother Diabetes Social History Household Members: Children Housing: House Alcohol intake: never Patient Tobacco Use Status: Former Tobacco user Tobacco use type: Cigarette Years Smoked: 8 years e-Cigarette/Vaping Use: Never Used Second Hand Smoke Exposure: No service: No Current occupational status: employed 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 Sexual orientation: Straight/Heterosexual Gender identity: Female Cognitive needs: No Hearing needs: No Vision needs: Yes Female Reproductive History Menstrual Age of Menarche: 13 Duration of menses: 6-7 days Date of last menstrual period: 05/29/25 control method: progestin IUCD Total pregnancies: 4 Full term: 5 Multiple births: 1 Date of last pap smear: 02/17/22 History of abnormal pap smear: Yes History of STI: No Review of Systems Const All systems reviewed & are unremarkable except as noted in HPI and below Reports as per HPI Eyes Reports no additional complaints ENT Reports no additional complaints Card Reports no additional complaints Resp Reports no additional complaints GI Reports as per HPI and Reports no additional complaints Reports as per HPI Musc Reports no additional complaints Skin/Breast Reports as per HPI Neuro Reports no additional complaints Psych Reports no additional complaints Endo Reports no additional complaints Neri/Lymph Reports no additional complaints Aller/Immun Reports no additional complaints Physical Exam Vital Signs: Last Vital Signs BP 110/68 06/06/25 13:20 BMI result Body Mass Index 34.0 Const General: cooperative, healthy appearing, no acute distress, well developed and alert Orientation/consciousness: patient oriented x3 HEENT Head: Yes normal to inspection Eyes General: appearance normal, both eyes and all related structures Neck Neck: Yes normal visual inspection Thyroid: Thyroid normal Chest Chest palpation & inspection: normal inspection of the chest and other (no puckering, dimpling, peau de orange, retraction, discharge, masses) Breast/axilla inspection: normal inspection of the breasts Breast/axilla palpation: normal palpation of the breasts Resp Effort & Inspection: normal respiratory effort GI Inspection: Yes normal to inspection Palpation (GI): Soft to palpation Rectal Exam - Female: deferred General: Yes bladder normal to palpation External Female Exam: normal external appearance and normal appearance of the urethra Speculum Exam - Vagina: normal appearance of the vagina, normal palpation and normal vaginal discharge Speculum Exam - Cervix: normal appearance of the cervix, normal palpation and Other cervical findings present (IUD strings at the os) Bimanual exam- vagina & uterus: normal bimanual exam, normal palpation, uterine size normal, bladder normal to palpation, normal palpation and non-tender Bimanual Exam- Adnexa, other: no masses Skin General skin exam: no rashes or lesions noted Rashes: no rashes Neuro General: patient oriented x3 Cognition (Neuro): normal cognition Extrem General: Yes normal to inspection Psych Attitude: cooperative Thought process: Normal thought process present Assessment & Plan Assessment & Plan (1) Encounter for annual routine gynecological examination: Code(s): Z01.419 - Encounter for gynecological examination (general) (routine) without abnormal findings Category: Medical Plan Discussed: Current recommendations for pap smears per ASCCP guidelines. Breast awareness and periodic breast exams. Maintain a healthy lifestyle including a well balanced diet and routine exercise. Patient verbalizes understanding and agrees to the plan of care. She was given opportunity to ask questions and all questions were answered to the best of my ability. 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 This note is constructed using voice recognition software. While every effort has been made to ensure accuracy, portable irrigation operator errors may have been included. Coding Level of Care Code Est Pt Prev Care 18-39y(89296) Diagnoses Encounter for annual routine gynecological examination Z01.419
== END 2025-06-06 14:13 | disposition home or self-care (01) ==
LOC: HO.HWS 13:14
PROVIDERS: PCP Internal Medicine; Visit Provider Advanced Practice Midwife
DX: Z01.419 Encounter for gynecological examination (general) (routine) without abnormal findings (principal)
CPT/HCPCS: 99395; 99459

== ENCOUNTER → 2025-06-06 13:14 | Outpatient (BNVA) | payer OTHER, SELFPAY | PROVIDERS: PCP Internal Medicine; Visit Provider Advanced Practice Midwife | DX: Z01.419 Encounter for gynecological examination (general) (routine) without abnormal findings (principal) | CPT/HCPCS: 99395 ==

== ENCOUNTER 2025-06-12 13:17 | Outpatient (AMB) | payer OTHER, SELFPAY ==
--- NOTE | 2025-06-12 13:36 | A.OFFPC_ITS ---
Vital Signs 06/12/25 13:37 Height 5 ft 5 in Weight 202 lb 4 oz BMI 33.7 BP 142/96 H Respiration 14 Pulse 87 Pulse Source Pulse Oximeter Temp 97.3 F Temp Source Temporal Artery Scan Pulse Oximetry (%) 98 Oxygen Delivery Method Room Air Intake Visit Reasons: Elevated BP- repeat PHQ-9 w/ interpretation! [employer] Inspector Required: No Accompanied by: Self / Same As Patient Allergies No Known Allergies Allergy (Verified 06/12/25 13:36) Medication List - Last Reconciled 06/12/25 by Omid An MD cholecalciferol (vitamin D3) 50 mcg (2 x 25 mcg (1,000 unit)) PO ONCE 90 days levonorgestrel (Mirena) intrauterine levothyroxine 112 mcg PO DAILY sennosides-docusate sodium 8.6-50 mg (Senna-S) 4 tab-caps (4 x 8.6-50 mg) PO BEDTIME 90 days Tobacco use date assessed: 02/15/25 Dental Screening Dental Screen Date: 02/15/25 HPI HPI Comments History of Present Illness Details History of Present Illness The patient is a 40 year old female presenting for a follow-up visit for multiple chronic conditions. She was last seen in January 2025. Her medical history is significant for obesity, hypothyroidism, gastroesophageal reflux disease (GERD), impaired glucose tolerance, and hypercholesterolemia. Regarding her hypothyroidism, her last thyroid blood work was in October 2024. A thyroid ultrasound performed in July showed no gross change in size, and no further follow-up was indicated at that time. Her lab work from January 2024 showed a normal blood count. She is up to date with her gynecology appointments. Health Maintenance - Up to date with gynecology appointment s. Social History - Lifestyle: Diet and exercise were disc ussed. Results - Labs: Blood count from January 2024 was normal. - Labs: Last thyroid test was performed in October 2024. - Imaging: Thyroid ultrasound in showed no gross change in size. [facility], LAT[facility] Medical History IUD (intrauterine device) in place Skin tags, multiple acquired Impaired glucose tolerance GERD (gastroesophageal reflux disease) Ovarian cyst Anemia ASAD II (cervical intraepithelial neoplasia II) Obesity (BMI 30-39.9) Vitamin D deficiency Goiter Terence's disease Hypothyroidism Surgical History H/O LEEP Family History Father Diabetes Hypertension Paternal Grandmother Diabetes Social History Household Members: Children Housing: House Alcohol intake: never Patient Tobacco Use Status: Former Tobacco user Tobacco use type: Cigarette Years Smoked: 8 years e-Cigarette/Vaping Use: Never Used Second Hand Smoke Exposure: No service: No Current occupational status: employed 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 Sexual orientation: Straight/Heterosexual Gender identity: Female Cognitive needs: No Hearing needs: No Vision needs: Yes Female Reproductive History Menstrual Age of Menarche: 13 Questionnaire Thrive Questionnaire Date Thrive assessed: 02/15/25 I am a: Patient What is your living situation today?: I have a steady place to live Within the past 12 months, did the food you bought not last and you didn't have the money to get more?: Never true Within the past 12 months, did you worry whether your food would run out before you got money to buy more?: Never true Do you have trouble paying for medicines?: No Do you have trouble getting transportation to medical appointments?: No Do you have trouble paying your heating and electricity bill?: No Do you have trouble taking care of your child, family member or friend?: No Do you have trouble with day-to-day activities such as bathing, preparing meals, shopping, managing finances, etc.?: No Are you currently unemployed and looking for a job?: No Are you interested in more education?: No Please select the resources that you would like help with: None Currently or been in a relationship where the following occur: I choose not to answer THRIVE Score: 0 NORRIS-7 AMB Questionnaire NORRIS-7 Date NORRIS - 7 assessed: 02/15/25 Source: Developed by Drs. Vladislav Gutierrez, Leilani Foote, Herminio Arriaza and colleagues, with an educational ynes from [employer] Review of Systems Narrative Review of Systems Physical exam (Primary Care) Vital Signs: Last Vital Signs Temp 97.3 F 06/12/25 13:37 Pulse 87 06/12/25 13:37 Resp 14 06/12/25 13:37 BP 142/96 H 06/12/25 13:37 Pulse Ox 98 06/12/25 13:37 Oxygen Delivery Method Room Air 06/12/25 13:37 BMI result Body Mass Index 33.7 Tobacco/Smoking Status: Tobacco use Status Tobacco use date assessed 02/15/25 06/12/25 13:41 Patient Tobacco Use Status Former Tobacco user 06/12/25 13:41 Tobacco use type Cigarette 06/12/25 13:41 e-Cigarette/Vaping Use Never Used 06/12/25 13:41 Thrive Assessment: Date of Thrive Assessment Date Thrive assessed 02/15/25 06/12/25 13:41 Currently or been in a relationship where the following occur: I choose not to answer Narrative Physical Exam - Vitals: Blood pressure to be monitored. 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 Fine-needle aspiration biopsy benign February 2023 Code(s): E03.9 - Hypothyroidism, unspecified Category: Medical Qualifiers: Hypothyroidism type: due to Terence's thyroiditis Qualified Code(s): E03.8 - Other specified hypothyroidism; E06.3 - Autoimmune thyroiditis Plan: October 2024 last blood work for the thyroid (2) Obesity (BMI 30-39.9): Code(s): E66.9 - Obesity, unspecified Category: Medical Plan: Diet and exercise (3) GERD (gastroesophageal reflux disease): Code(s): K21.9 - Gastro-esophageal reflux disease without esophagitis Category: Medical Plan: Avoid the foods that causes that usually spicy foods, tomato products, juices, coffee, soda and foods that your sensitive to. After eating do not lie down, allow 3-4 hours before in lie down. And keep the head of bed above 30 degrees to avoid the acid from going up. (4) Blood pressure elevated without history of HTN: Code(s): R03.0 - Elevated blood-pressure reading, without diagnosis of hypertension Category: Medical Plan: Continue to monitor blood pressure Plan Plan Patient was informed and verbally consented to the use of an ambient scribe for clinic note documentation during this visit. 1. Hypothyroidism Continue monitoring thyroid function. The patient's last thyroid blood work was in October 2024. 2. Gastroesophageal Reflux Disease (Gerd) Continue with the current reflux management plan. 3. Hypertension Continue to monitor blood pressure. 4. Obesity Continue encouragement of diet and exercise for weight management. Discussion Notes I reviewed the patient's history, including her multiple chronic conditions. We discussed the plan to continue monitoring her blood pressure, maintaining her current reflux plan, and encouraging diet and exercise. We noted her last thyroid tests and ultrasound findings, with no changes indicated at this time. Patient Instructions - Continue to keep track of your blood pressure readings. - Keep following your current plan for acid reflux. - Continue with your diet and exercise routine. Orders: Orders Comprehensive Met. Panel 6 Months R73.01 - Impaired fasting glucose Free T4 (Free Thyroxine) 6 Months R73.01 - Impaired fasting glucose Thyroid Stimulating Hormone 6 Months R73.01 - Impaired fasting glucose Lipid Panel 6 Months E78.00 - Pure hypercholesterolemia, unspecified, R73.01 - Impaired fasting glucose Vitamin B12 and Folate 6 Months R73.01 - Impaired fasting glucose Vitamin D 25-OH Total 6 Months R73.01 - Impaired fasting glucose Complete Blood Count Auto Diff 6 Months R73.01 - Impaired fasting glucose Magnesium 6 Months R73.01 - Impaired fasting glucose
[2025-06-12 13:37] VITALS: BP 142/96; PULSE 87; RESP 14; TEMP 36.3; O2SAT 98; BMI 33.7
== END 2025-06-12 14:01 | disposition home or self-care (01) ==
LOC: HO.HMCH 13:18
PROVIDERS: PCP Internal Medicine; Visit Provider Internal Medicine
DX: E03.8 Other specified hypothyroidism (principal); E66.9 Obesity, unspecified; Z68.33 Body mass index [BMI] 33.0-33.9, adult; E06.3 Autoimmune thyroiditis; K21.9 Gastro-esophageal reflux disease without esophagitis; R03.0 Elevated blood-pressure reading, without diagnosis of hypertension

== ENCOUNTER → 2025-06-12 13:17 | Outpatient (BNVA) | payer OTHER, SELFPAY | PROVIDERS: PCP Internal Medicine; Visit Provider Internal Medicine | DX: E03.8 Other specified hypothyroidism (principal); E06.3 Autoimmune thyroiditis; E66.9 Obesity, unspecified; K21.9 Gastro-esophageal reflux disease without esophagitis; R03.0 Elevated blood-pressure reading, without diagnosis of hypertension; Z68.33 Body mass index [BMI] 33.0-33.9, adult | CPT/HCPCS: 99212 ==